=== PATIENT | female | born 2000 | race Caucasian/White ===

== ENCOUNTER → 2022-09-11 18:26 | Outpatient (CLI) | payer OTHER, SELFPAY ==
[2022-09-11 19:37] LABS: MANUAL DIFFERENTIAL MANUAL DIFFERENTIAL (MANUAL DIFF)
[2022-09-11 19:43] LABS: Basophils # 0.1 K/mm3 (0-0.2); Basophils % 0.8 % (0.1-2.0); Eosinophils # 0.1 K/mm3 (0.0-0.4); Eosinophils % 0.9 % (0.1-12.0); Hematocrit 41.3 % (37.0-47.0); Hemoglobin 13.1 g/dL (12.2-16.2); Lymphocytes # 2.5 K/mm3 (0.7-4.5); Lymphocytes % 20.3 % (10-50); Mean Corpuscular HGB Conc 31.7 g/dL (31.8-35.4); Mean Corpuscular Hemoglobin 26.5 pg (27.0-31.2); Mean Corpuscular Volume 83.6 fl (81-99); Mean Platelet Volume 8.5 fl (7.4-10.4); Monocytes # 0.7 K/mm3 (0.1-1.0); Monocytes % 5.8 % (1.7-9.3); Neutrophils # 8.9 K/mm3 (1.8-7.8); Neutrophils % 72.2 % (37.0-80.0); Platelet Count 484 K/mm3 (142-424); Red Blood Count 4.93 M/mm3 (4.20-5.40); Red Cell Distribution Width 13.9 % (11.5-17.5); White Blood Count 12.3 K/mm3 (4.8-10.8)
[2022-09-11 19:48] LABS: Chloride 102 mmol/L (98-107); Potassium 4.1 mmoL/L (3.5-5.1); Sodium 139 mmol/L (136-145)
[2022-09-11 19:50] LABS: Alanine Aminotransferase 30 U/L (12-78); Aspartate Amino Transferase 30 U/L (14-36); Blood Urea Nitrogen 11 mg/dl (7-17); Estimated Glomerular Filt Rate 105 ml/min (>60); GFR (African American) 127 ML/MIN (>60)
[2022-09-11 19:51] LABS: Albumin Level 4.6 g/dl (3.5-5.0); Albumin/Globulin Ratio 1.4 (1.1-1.8); Alkaline Phosphatase 93 U/L (38-126); Anion Gap 17.1 mEq/L (5-15); Bilirubin,Total 0.3 mg/dl (0.2-1.3); Calcium 10.1 mg/dl (8.4-10.2); Carbon Dioxide 24 mmol/L (22.0-30.0); Globulin 3.2 g/dL (1.3-3.2); Glucose 87 mg/dl (74-100); Total Protein,Serum 7.8 g/dl (6.3-8.2)
[2022-09-11 20:22] LABS: Thyroid Stimulating Hormone 1.83 uIU/mL (0.465-4.68)
[2022-09-11 22:18] LABS: Lymphocytes % 16 % (10-50); Monocytes % 2 % (2-9); Neutrophils % 82 % (42-76); Platelet Estimate Normal; RBC Morphology Normal; Total Cells Counted 100
== END ==
LOC: LAB.DROPOF 18:27
PROVIDERS: PCP Nurse Practitioner Family; Visit Provider Nurse Practitioner Family
DX: R53.83 Other fatigue (principal); Z68.43 Body mass index [BMI] 50.0-59.9, adult
CPT/HCPCS: 80053; 84443; 85007; 85014; 85018; 85048; 85049

== ENCOUNTER → 2022-12-15 23:00 | Outpatient (CLI) | payer OTHER, SELFPAY | PROVIDERS: PCP Family Medicine; Visit Provider Family Medicine | DX: R50.9 Fever, unspecified (principal) | CPT/HCPCS: C9803; U0003; U0005 ==

== ENCOUNTER → 2023-02-20 13:24 | Outpatient (CLI) | payer OTHER, SELFPAY ==
--- NOTE | 2023-02-20 14:18 | US_ITS ---
PROCEDURE INFORMATION: Exam: US Left Breast, Complete Exam date and time: 02/20/2023 2:23 PM Age: 22 years old Clinical indication: Breast pain; Left TECHNIQUE: Imaging protocol: Complete ultrasound of all four quadrants of the left breast and the retroareolar regions, including ultrasound of the axilla when performed. COMPARISON: No relevant prior studies available. FINDINGS: Breast: Sonographic images of the left breast including the retroareolar region, all 4 quadrants and the axilla do not demonstrate any solid or cystic masses. No architectural distortion or acoustical shadowing. No skin thickening or axillary adenopathy. IMPRESSION: No sonographic evidence of malignancy. ASSESSMENT: BI-RADS Category 1: Negative
== END ==
LOC: RAD 13:26
PROVIDERS: PCP Family Medicine; Visit Provider Nurse Practitioner
DX: N64.4 Mastodynia (principal)
CPT/HCPCS: 76641

== ENCOUNTER → 2023-07-22 12:00 | Outpatient (CLI) | payer OTHER, SELFPAY ==
[2023-07-22 18:11] LABS: HCG Qualitative, Serum Negative (Negative)
== END ==
LOC: LAB.DROPOF 07-23 00:18
PROVIDERS: PCP Family Medicine; Visit Provider Family Medicine
DX: N92.6 Irregular menstruation, unspecified (principal); Z32.00 Encounter for pregnancy test, result unknown
CPT/HCPCS: 84703

== ENCOUNTER 2024-06-07 17:56 | Outpatient (CLI) | payer OTHER, SELFPAY ==
[2024-06-07 16:57] LABS: Basophils # 0.1 K/mm3 (0-0.2); Basophils % 0.6 % (0.1-2.0); Eosinophils # 0.1 K/mm3 (0.0-0.4); Hematocrit 37.1 % (37.0-47.0); Hemoglobin 11.8 g/dL (12.2-16.2); Lymphocytes % 20.3 % (10-50); Mean Corpuscular HGB Conc 31.9 g/dL (31.8-35.4); Mean Corpuscular Hemoglobin 26.9 pg (27.0-31.2); Mean Corpuscular Volume 84.2 fl (81-99); Mean Platelet Volume 9.1 fl (7.4-10.4); Monocytes # 0.7 K/mm3 (0.1-1.0); Neutrophils # 7.1 K/mm3 (1.8-7.8); Neutrophils % 71.1 % (37.0-80.0); Platelet Count 354 K/mm3 (142-424); Red Blood Count 4.41 M/mm3 (4.20-5.40); Red Cell Distribution Width 14.9 % (11.5-17.5)
[2024-06-07 17:25] LABS: Alanine Aminotransferase 30 U/L (12-78); Albumin Level 3.9 g/dl (3.5-5.0); Albumin/Globulin Ratio 1.3 (1.1-1.8); Alkaline Phosphatase 64 U/L (38-126); Anion Gap 12.4 mEq/L (5-15); Aspartate Amino Transferase 24 U/L (14-36); Bilirubin,Total 0.3 mg/dl (0.2-1.3); Blood Urea Nitrogen 10 mg/dl (7-17); Calcium 9.8 mg/dl (8.4-10.2); Carbon Dioxide 22 mmol/L (22.0-30.0); Chloride 107 mmol/L (98-107); Chol/HDL Ratio 4.6 (1-3.5); Cholesterol 192 mg/dl (140-200); Estimated Glomerular Filt Rate 103 ml/min (>60); GFR (African American) 124 ML/MIN (>60); Glucose 99 mg/dl (74-100); HDL Cholesterol 42 mg/dl (40-60); Potassium 4.4 mmoL/L (3.5-5.1); Sodium 137 mmol/L (136-145); Total Protein,Serum 6.9 g/dl (6.3-8.2); Triglycerides 108 mg/dl (30-150); VLDL Cholesterol 22 mg/dL (0-40)
[2024-06-07 17:36] LABS: Direct LDL Cholesterol 125.19 mg/dL (100-129)
[2024-06-07 17:57] LABS: Thyroid Stimulating Hormone 0.02 uIU/mL (0.465-4.68)
[2024-06-07 18:17] LABS: Vitamin B12 307 pg/mL (239-931)
[2024-06-07 18:39] LABS: 25-OH Vitamin D, Total 25.1 ng/mL (30-100)
[2024-06-07 18:44] LABS: T4 (Thyroxine) 10.4 ug/dl (5.53-11.0); Triiodothryronine (T3) Uptake 29 % (23.5-40.5)
[2024-06-07 18:57] LABS: Thyroid Stimulating Hormone 0.03 uIU/mL (0.465-4.68)
[2024-06-07 19:44] LABS: Iron 55 ug/dL (37-170)
[2024-06-07 19:54] LABS: Total Iron Binding Capacity 357 ug/dL (265-497)
== END 2024-06-07 23:59 | disposition home or self-care (01) ==
LOC: LAB.DROPOF 17:56
PROVIDERS: PCP Nurse Practitioner Family; Visit Provider Nurse Practitioner Family
DX: R53.83 Other fatigue (principal)
CPT/HCPCS: 80050; 80053; 80061; 82306; 82607; 83036; 83540; 83550; 84436; 84443; 84479; 85025

== ENCOUNTER 2024-07-18 12:33 | Outpatient (CLI) | payer OTHER, SELFPAY | END 2024-07-18 23:59 | disposition home or self-care (01) | LOC: LAB.DROPOF 07-19 12:33 | PROVIDERS: PCP Family Medicine; Visit Provider Family Medicine | DX: R79.89 Other specified abnormal findings of blood chemistry (principal) | CPT/HCPCS: 84443 ==

== ENCOUNTER 2024-10-19 12:39 | Outpatient (CLI) | payer OTHER, SELFPAY ==
--- NOTE | 2024-10-19 12:39 | US_ITS ---
PROCEDURE: US TRANSVAGINAL CLINICAL INDICATION: abnormal menses COMPARISON: No exams were available for comparison FINDINGS: Transvaginal sonographic images of the pelvis were obtained. UTERUS: 8.3cm x 5.2cmx 3.9cm anteverted with a combined endometrial thickness of 10.9mm. The endometrium is trilaminar. LEFT OVARY: 3.8cmx3.4cmx2.0cm with a volume of 13.5ml. There is an irregular shaped follicle within the left ovary measuring 1.7 cm x 1.7 cm x 1.3 cm. Likely a corpus luteum. RIGHT OVARY: 2.6cmx 2.6cmx2.6cm with a volume of 9.6ml. There are several small peripheral follicles in the right ovary. Both ovaries are seen and appear normal. Doppler flow to both ovaries are seen. There is no fluid in the cul-de-sac. IMPRESSION: 1. Anteverted uterus normal in shape and size. The endometrium appears normal and trilaminar. 2. Both ovaries are seen and appear normal. There is a corpus luteum in the left ovary. 3. No fluid in the cul-de-sac. Dictated by: Carlos Slade MD 10/20/2024 02:49 Carlos Slade MD in OV 10/20/2024 02:49
== END 2024-10-19 23:59 | disposition home or self-care (01) ==
LOC: RAD 12:39
PROVIDERS: PCP Family Medicine; Visit Provider Obstetrics & Gynecology
DX: E28.2 Polycystic ovarian syndrome (principal); E66.01 Morbid (severe) obesity due to excess calories; Z68.44 Body mass index [BMI] 60.0-69.9, adult; Z31.9 Encounter for procreative management, unspecified
CPT/HCPCS: 76830

== ENCOUNTER 2024-10-25 07:50 | Outpatient (CLI) | payer OTHER, SELFPAY ==
[2024-10-25 08:58] LABS: Basophils # 0.1 K/mm3 (0-0.2); Eosinophils # 0.1 K/mm3 (0.0-0.4); Eosinophils % 1.4 % (0.1-12.0); Hemoglobin 12.6 g/dL (12.2-16.2); Lymphocytes % 24.8 % (10-50); Mean Corpuscular HGB Conc 32.3 g/dL (31.8-35.4); Mean Corpuscular Hemoglobin 26.1 pg (27.0-31.2); Mean Corpuscular Volume 80.9 fl (81-99); Mean Platelet Volume 8.1 fl (7.4-10.4); Monocytes # 0.5 K/mm3 (0.1-1.0); Monocytes % 6.3 % (1.7-9.3); Neutrophils # 5.5 K/mm3 (1.8-7.8); Neutrophils % 66.6 % (37.0-80.0); Platelet Count 359 K/mm3 (142-424); Red Blood Count 4.82 M/mm3 (4.20-5.40); Red Cell Distribution Width 14.3 % (11.5-17.5); White Blood Count 8.2 K/mm3 (4.8-10.8)
[2024-10-25 09:58] LABS: Chloride 107 mmol/L (98-107); Potassium 4.7 mmoL/L (3.5-5.1); Sodium 135 mmol/L (136-145)
[2024-10-25 10:01] LABS: Alanine Aminotransferase 35 U/L (12-78); Alkaline Phosphatase 61 U/L (38-126); Anion Gap 10.7 mEq/L (5-15); Aspartate Amino Transferase 30 U/L (14-36); Bilirubin,Total 0.5 mg/dl (0.2-1.3); Blood Urea Nitrogen 9 mg/dl (7-17); Calcium 9.6 mg/dl (8.4-10.2); Carbon Dioxide 22 mmol/L (22.0-30.0); Cholesterol 202 mg/dl (140-200); Estimated Glomerular Filt Rate 103 ml/min (>60); GFR (African American) 124 ML/MIN (>60); Glucose 93 mg/dl (74-100); Total Protein,Serum 7.1 g/dl (6.3-8.2); Triglycerides 148 mg/dl (30-150); VLDL Cholesterol 30 mg/dL (0-40)
[2024-10-25 10:02] LABS: Chol/HDL Ratio 5.5 (1-3.5); HDL Cholesterol 37 mg/dl (40-60)
[2024-10-25 10:13] LABS: Direct LDL Cholesterol 131.97 mg/dL (100-129)
[2024-10-25 10:41] LABS: Hemoglobin A1C 5.2 % (4.0-6.0)
[2024-10-25 10:48] LABS: Thyroid Stimulating Hormone 2.94 uIU/mL (0.465-4.68)
[2024-10-25 10:51] LABS: Ferritin 32.2 ng/ml (6.24-137)
[2024-10-25 15:11] LABS: Uric Acid 5.3 mg/dl (2.5-6.2)
[2024-10-25 16:21] LABS: Albumin Level 4.3 g/dl (3.5-5.0); Albumin/Globulin Ratio 1.5 (1.1-1.8); Globulin 2.8 g/dL (1.3-3.2)
[2024-10-26 06:22] LABS: Insulin Level Total 41.4 uIU/mL (2.6-24.9)
[2024-10-26 08:48] LABS: Estradiol 34.5 pg/mL (.); FSH 5.7 mIU/mL (.); Testosterone,Total 32 ng/dL (13-71)
[2024-10-28 05:09] LABS: Anti Mullerian Hormone (AMH) 3.15 ng/mL (.)
== END 2024-10-25 23:59 | disposition home or self-care (01) ==
LOC: LAB 07:51
PROVIDERS: PCP Family Medicine; Visit Provider Obstetrics & Gynecology
DX: E28.2 Polycystic ovarian syndrome (principal); E66.01 Morbid (severe) obesity due to excess calories; Z68.44 Body mass index [BMI] 60.0-69.9, adult; Z31.9 Encounter for procreative management, unspecified
CPT/HCPCS: 36415; 80050; 80053; 80061; 82397; 82670; 82728; 83001; 83036; 83525; 83735; 84403; 84443; 84550; 85025

== ENCOUNTER 2025-05-15 09:37 | Outpatient (CLI) | payer BC, SELFPAY ==
--- OUTSIDE RECORDS SUMMARY | 2025-05-15 09:47 | XMS_ITS | Clinical Summary ---
Author Organization [facility] Address [address] [place] [address] Care Team Providers Care Diploma Pharmacy Technician Name Role Phone Sabnia Pereira APRN Primary Care Provider [phone] Allergies Active Allergy Reactions Criticality Noted Date Comments Amoxicillin Unknown - Patient st ates they do not know rxn details Low 01/20/2023 As a child Penicillins Unknown - Patient st ates they do not know rxn details Low 03/17/2016 As a child Medications buPROPion SR (Wellbutrin SR) 150 MG 12 hr tabletIndications:M orbid obesity with body mass index (BMI) of 60.0 to 69.9 in adult (CMS/HCC) Take 1 tablet (150 mg) by mouth 2 (two) times a day. Do not crush, chew, or split. 60 tablet 2 4 Active naltrexone (ReVia) 50 MG tabletIndications:M orbid obesity with body mass index (BMI) of 60.0 to 69.9 in adult (CMS/HCC) Take 1 tablet (50 mg) by mouth 1 (one) time each day. 30 tablet 2 4 Active ondansetron ODT (Zofran-ODT) 4 MG disintegrating tabletIndications:N ausea Take 1 tablet (4 mg) by mouth every 8 (eight) hours if needed for nausea or vomiting. 20 tablet 4 Active Active Problems Problem Noted Date Diagnosed Date Morbid obesity with body mass index (BMI) of 40. 0 or higher 01/20/2023 Obesity 11/26/2017 Immunizations Immunization Administration Dates Next Due DTaP 05/07/2004, 1,2000,08/31/20 00,2000 Hep B, Adolescent or Pediatric 09/06/2001,1999,2000 Hib (PRP-OMP) 09/06/2001,2000,2000 IPV 09/06/2001,2000,2000 Influenza, high-dose, quadrivalent 11/17/2014 MMR 05/07/2004,05/13/2001 Meningococcal MCV4P 06/09/2011 Pneumococcal Conjugate PCV 7 11/30/2001, 05/13/2001,02/24/2001,11/18/19 01 Tdap 06/09/2011 Varicella 05/13/2001 Family History Medical History Relation Name Comments Diverticulitis Father Hypertension Father No Known Problems Father's Sister Brain Aneurysm Maternal Grandfather Diabetes Maternal Grandfather Non-Hodgkin's lymphoma Maternal Grandmother Rheum arthritis Maternal Grandmother Anemia Mother Hypertension Mother Menorrhagia Mother No Known Problems Mother's Sister Breast cancer Other No Known Problems Paternal Grandfather Colon cancer Paternal Grandmother Leukemia Paternal Great-Grandmother Relation Name Status Comments Father Alive Father's Sister Alive Maternal Grandfather Maternal Grandmother Alive Mother Alive Mother's Sister Other Paternal Great Aunt Paternal Grandfather Alive Paternal Grandmother Alive Paternal Great-Grandmother Social History Tobacco Use Types Packs/Day Years Used Date Smoking Tobacco: Never Smokeless Tobacco: Former Quit: 2019 Tobacco Cessation:Counseling Given: Not Answered Alcohol Use Standard Drinks/Week Comments Not Currently 0 (1 standard drink = 0.6 oz pur e alcohol) Very rare Humiliation, Afraid, Rape, and Kick questionnair e Answer Date Recorded Within the last year, have y ou been afraid of your partner or ex-partner? No 03/24/2024 Within the last year, have y ou been humiliated or emotionally abused in other ways by your partner or ex-partner? No Within the last year, have y ou been kicked, hit, slapped, or otherwise physically hurt by your partner or ex-partner? No 03/24/2024 Within the last year, have y ou been raped or forced to have any kind of sexual activity by your partner or ex-partner? No 03/24/2024 Social Connection and Isolation Panel Answer Date Recorded In a typical week, how many times do you talk on the phone with family, friends, or neighbors? More than three times a week 03/24/2024 How often do you get togethe r with friends or relatives? More than three times a week 03/24/2024 How often do you attend [facility] or [facility] services? More than 4 times per year 03/24/2024 Do you belong to any clubs o r organizations such as congregational groups, unions, fraternal or athletic groups, or school groups? Yes 03/24/2024 How often do you attend meet ings of the clubs or organizations you belong to? More than 4 times per year 03/24/2024 Are you , , di vorced, , never , or living with a partner? 03/24/2024 AUDIT-C Answer Date Recorded Q1: How often do you have a drink containing alcohol? Never 03/24/2024 Q2: How many drinks containi ng alcohol do you have on a typical day when you are drinking? Patient does not drink Q3: How often do you have si x or more drinks on one occasion? Never 03/24/2024 Overall Financial Resource Strain (CARDIA) Answe r Date Recorded How hard is it for you to pa y for the very basics like food, housing, medical care, and heating? Not hard at all 03/24/2024 PHQ-2 Answer Date Recorded Patient Health Questionnaire-2 Score 0 03/24/2024 [facility] - Occupational Stress Questionnaire Answer Date Recorded Do you feel stress - tense, restless, nervous, or anxious, or unable to sleep at night because your mind is troubled all the time - these days? Only a little 03/24/2024 Exercise Vital Sign Answer Date Recorde d On average, how many days pe r week do you engage in moderate to strenuous exercise (like a brisk walk)? 5 days 03/24/2024 On average, how many minutes do you engage in exercise at this level? 60 min 03/24/2024 Hunger Vital Sign Answer Date Recorded Within the past 12 months, y ou worried that your food would run out before you got the money to buy more. Never true 03/24/20 24 Within the past 12 months, t he food you bought just didn't last and you didn't have money to get more. Never true 03/24/2024 PRAPARE - Transportation Answer Date Re corded In the past 12 months, has l ack of transportation kept you from medical appointments or from getting medications? No 03/09 In the past 12 months, has l ack of transportation kept you from meetings, work, or from getting things needed for daily living? No 03/24/2024 Housing Stability Vital Sign Answer Prasad e Recorded In the last 12 months, was t here a time when you were not able to pay the mortgage or rent on time? No 03/24/2024 In the last 12 months, how many places have you lived? 1 03/24/2024 In the last 12 months, was t here a time when you did not have a steady place to sleep or slept in a skilled nursing (including now)? No 03/24/2024 Utilities Answer Date Recorded In the past 12 months has th e [employer], gas, oil, or water [employer] threatened to shut off services in your home? No 03/24/2024 PHQ-2A Answer Date Recorded Patient Health Questionnaire-2 Score 0 01/20/2023 Comments No Sex and Gender Information Value Date Recorded Sex Assigned at Not on file Legal Sex Female 6:22 PM EDT Gender Identity Not on file Sexual Orientation Not on file Last Filed Vital Signs Vital Sign Reading Time Taken Comments Blood Pressure 130/74 03/24/2024 12:07 PM EDT Pulse 80 03/24/2024 12:07 PM EDT Temperature 36.9 C (98.5 F) 01/20/2023 4:19 PM EDT Respiratory Rate 18 03/24/2024 12:07 PM EDT Oxygen Saturation 98% 03/24/2024 12:07 PM EDT Inhaled Oxygen Concentration - - Weight 201 kg (442 lb 10.9 oz) 03/24/2024 12:07 PM EDT Height 175.3 cm (5' 9 ) 03/24/2024 12:07 PM EDT Body Mass Index 65.37 03/24/2024 12:07 PM EDT Plan of Treatment Health Maintenance Due Date Last Done Comments [facility]-HIV Screening 2000 [facility]-Hepatitis C Screening 2000 [facility]-/Child/Adol SDOH Screenings 2000 [facility]-IPV Vaccines (4 of 4 - 4-dose series) 2004 09/06/2001, 2000, 2000 [facility]-Varicella Vaccines (2 of 2 - 2-dose childhood series) 06/04/2004 05/13/2001 HPV Vaccines (1 - 3-dose series) 2015 [facility]- SDOH Screenings 2018 [facility]-Adult SDOH Screenings 2018 [facility]-DTaP,Tdap,and Td Vaccines (7 - Td or Tdap) 06/09/2021 06/09/2011, 05/07/2004, 09/06/2001, Additional history exists FRA-LQAIM-24 Vaccine (1 - 2023- season) 2024 [facility]-Depression Screening 03/24/2025 03/24/2024 [facility]-Influenza Vaccine (#1) 2025 11/17/2014 [facility]-Pap Smear 01/20/2026 01/20/2023 [facility]-Zoster Vaccines (1 of 2) 2050 05/13/2001 [facility]-HIB Vaccines Completed 09/06/2001, , 2000 [facility]-Hepatitis B Vaccines Completed 001, 2000, 2000 [facility]-Pneumococcal Vaccine: Pediatrics (0 to 5 Years) and At-Risk Patients (6 to 49 Years) Aged Out 11/30/2001, 05/13/2001, 02/24/2001, Additional history exists No longer eligible based on patient's age to complete this topic [facility]-Obesity Intervention Completed 024, 01/29/2024, 01/20/2023 [facility]-Hepatitis A Vaccines Aged Out No longer eligible based on patient's age to complete this topic [facility]-Rotavirus Vaccines Aged Out No lo nger eligible based on patient's age to complete this topic Procedures Procedure Name Priority Date/Time Associated Diagnosis Comments PAP TEST - CYTOLOGY Routine 01/20/2023 4 :39 PM EDT Pap smear for cervical cancer screening from Last 3 Months or Most Recently Relevant to Health Maintenance Results * Pap Test (01/20/2023 4:39 PM EDT) Case Report Cytology Case: [id number] Authorizing Provider: Jennifer English APRN, Collected: 01/20/2023 1639 CNM Ordering Location: Obstetrics & Gynecology Received: 01/21/2023 0927 First Screen: Macie Gallagher Specimen: ThinPrep Pap Test, Liquid-Based Cervical/Vaginal, CERVICAL/VAGINAL 01/23/2023 4:12 PM EDT [facility] Interpretation NEGATIVE FOR INTRAEPITHELIAL LESION OR MALIGNANCY 01/23/2023 4:12 PM EDT [facility] at 1612 EDT Specimen Adequacy Satisfactory for evaluation; endocervical/gramajo sformation zone component absent/insufficie nt. Slide imaged by the ThinPrep Imaging system and selected 22 zambrano reviewed then full manual screening. 01/23/2023 4:12 PM EDT [facility] Cervical cytology is a screening test primarily for squamous cancers and precursors and has associated false negative and positive results. New technologies such as liquid based sampling may decrease but will not eliminate all false negative results. Regular screening and follow-up of unexplained clinical signs and symptoms are recommended to minimize false negative results. Please see the ASCCP website (www.asccp.org)fo r followup recommendations. If HPV testing was requested, correlation with the results is suggested (please call Microbiology at [phone] for results). 01/23/2023 4:12 PM EDT [facility] Menstrual Status Cyclic 01/24/20 4:12 PM EDT [facility] Contraceptive History Not Applicable 01/23/2023 4:12 PM EDT [facility] Screening Type Routine Screen 2022 4:12 PM EDT [facility] High Risk? No 01/23/2023 4:12 PM EDT [facility] HPV Testing Requested? Request HPV testing if ASCUS or LSIL. 01/23/2023 4:12 PM EDT [facility] Previous Cancer History No 01/23/2023 4:12 PM EDT [facility] Clinical Information Z12.4 - Pap smear for cervical cancer screening [ICD-10-CM] 01/23/2023 4:12 PM EDT [facility] Last Menstrual Period 12/29/2022 01/23/2023 4:12 PM EDT [facility] Swab Vaginal and cervical cytologic material / Unknown Non-blood Collection / Unknown 01/20/2023 4:39 PM EDT 01/21/2023 9:27 AM EDT Jennifer English APRN, [facility]TOLOGY ORDERA BLES Final Result [facility] [address] [place] [address] from Last 3 Months or Most Recently Relevant to Health Maintenance Insurance Care Teams Diploma Pharmacy Technician Relationship Specialty Start Date End Date Sabina Pereira APRN [address] [place] [address] [phone] PCP - General Family Medicine 01/30/24
== END 2025-05-15 23:59 | disposition home or self-care (01) ==
PROVIDERS: PCP Family Medicine; Visit Provider Obstetrics & Gynecology
DX: Z34.90 Encounter for supervision of normal pregnancy, unspecified, unspecified trimester (principal)
CPT/HCPCS: 36415; 84144; 84702

== ENCOUNTER 2025-05-17 11:15 | Outpatient (CLI) | payer BC, SELFPAY ==
--- OUTSIDE RECORDS SUMMARY | 2024-07-29 07:30 | XMS_ITS ---
Author Organization [facility] Address [address] [place] [address] Care Team Providers Care Terrestrial Ecologist Name Role Phone Ibrahima Zheng Unavailable [phone] Amy Key Unavailable [phone] REASON FOR VISIT 3 month med F/U Medications Medication SIG (Take, Route, Frequency, Duration) Notes Start Date End Date Status Topamax PRN-migraines Active metFORMIN HCl ER 500 MG Tablet Extended Release 24 Hour 1 tablet Orally twice a day, 1 tablet after breakfast and dinner; Duration: 90 days Active Social History Social History Additional Details Category Social Info Options Details Migrated Social History Tobacco Use: willy es Encounters Encounter Location Date Provider Diagnosis [facility] [address] [place] [address] 07/29/2024 Amy Key Plan Of Treatment No Information Progress Notes * Raisa CLARKDOB:1999 (25 yo F)Acc No.[id number]:07/29/2024 Progress Note Patient: Raisa Connelly Provider: KATHRYN WELLINGTON :2000 A ge:24 Y S ex:Female Date:07/29/2024 Address:[address] [place], [place] [address] Subjective: * Chief Complaints: * 3 month med F/U * Medical History: Asthma Migraine headaches Morbid obesity * Tool/Die Maker History: M enstrual History: A ge of Onset 1 2 L MP: 0 04/17/2024 S exual Activity/Contraception: E [place] sexually active Y es B irth control (Historical) n one. L ast Pap Smear/HPV Date (Historical) N ever had a pap smear. * OB History: P regnancy History (GPA) Total Pregnancies 0 * Surgical History: gallbladder knee sx * Family History: denies. * Social History: M igrated Social History: T obacco Use: denies. * Medications: T akingmetFORMIN HCl ER 500 MG Tablet Extended Release 24 Hour 1 tablet Orally twice a day, 1 tablet after breakfast and dinner Topamax , Notes to Pharmacist: PRN-migrainesTaking metFORMIN HCl ER 500 MG Tablet Extended Release 24 Hour 1 tablet Orally twice a day, 1 tablet after breakfast and dinner Taking Topamax , Notes to Pharmacist: PRN-migraines * Electronic signature of Kael Key APRN on 05/17/2025 at 11:17 AM EDT Sign off status: Pending Visit Status: N /S (No-Show) * Provider: KATHRYN WELLINGTON Date: 0 07/29/2024 Generated for Jennifer skelton/Robert/Sergioitting on: 0 05/17/2025 11:17 AM EDT
--- OUTSIDE RECORDS SUMMARY | 2025-05-17 11:17 | XMS_ITS | Patient Health Record ---
Author Organization [facility] Address [address] [place] [address] Care Team Providers Care Box Finisher Name Role Phone Ibrahima Zheng Unavailable [phone] Amy Key Unavailable [phone] Allergies Allergen (clinical drug ingredient) Drug/Non Drug Allergy documented on EMR Reaction Allergy Type Onset Date Status Penicillin Anaphylaxis Drug Allergy Acti ve Reason For Referral No Information Medications Medication SIG (Take, Route, Frequency, Duration) Notes Start Date End Date Status Topamax PRN-migraines Active metFORMIN HCl ER 500 MG Tablet Extended Release 24 Hour 1 tablet Orally twice a day, 1 tablet after breakfast and dinner; Duration: 90 days Active Social History Social History Additional Details Category Social Info Options Details Migrated Social History Tobacco Use: willy es Problems Problem Type SNOMED Code ICD Code Onset Dates Problem Status W/U Status Risk Notes Problem Morbid obesity (disorder) (930699452) Morbid (severe) obesity due to excess calories (E66.01) Active confirmed Problem 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) Active confirmed Problem Female infertility (6623161) Infertility, female (N97.9) Active confirmed Problem Missed period (44792104) Missed period (N92.6) Active confirmed Problem Body mass index 30+ - obesity (finding) (049668026) Body mass index [BMI] 60.0-69.9, adult (Z68.44) Active confirmed Encounters Encounter Location Date Provider Diagnosis [facility] [address] [place] [address] 06/21/2024 Amy Key Plan Of Treatment No Information Insurance Providers Payer Name Payer Address Payer Phone Subscriber Number Group Number Insured Name Patient Relationship to Insured Coverage Start Date Coverage End Date [facility] [address] [place], [place] [id number] Raisa Jiménez Self - patient is the insured Medical (General) History Medical History History ICD Code asthma migraine headaches morbid obesity Surgical History Surgery Date(Month/Year) gallbladder knee sx
--- OUTSIDE RECORDS SUMMARY | 2025-05-17 11:17 | XMS_ITS | Data Portability ---
Author Organization [employer] [facility] Address [address] [place] [address] Assessment No assessment recorded. Plan of Treatment Reminders Order Date Submit Date Provider Last Modified By Organization Details Last Modified Time Details Appointments None recorded. Lab vitamin D, 25-hydroxy, total, serum 2023 024 [facility], [address], [place], [address], 4 05:23:20 dhea-sulfat e, serum 2023 024 [facility], [address], [place], [address], 4 05:23:19 prolactin, serum 2023 024 [facility], [address], [place], [address], 4 05:23:19 HbA1c (hemoglobin A1c), blood 2023 024 [facility], [address], [place], [address], 4 05:23:21 lh + FSH, serum 2023 024 [facility], [address], [place], [address], 4 05:23:20 lipid panel, serum 2023 024 [place] [employer] [facility], [address], [place], [address], 4 05:23:17 CBC w/ auto diff 2023 024 [place] [facility], [address], [place], [address], 4 05:23:18 CMP, serum or plasma 2023 024 [place] [facility], [address], [place], [address], 4 05:23:18 TSH, serum or plasma 2023 024 [place] [facility], [address], [place], [address], 4 05:23:20 Referral None recorded. Procedures None recorded. Surgeries None recorded. Imaging XR, ankle, 3 or more view [address], [address], 5 17:26:56 XR, foot, 3 or more view [address] [facility], [address] [place] [address], [address], 5 17:26:05 XR, wrist, 3 or more view [address], [address], 3 17:02:27 Medication Orders prednisone 20 mg tablet 2022 023 [email or web address] [facility], [address] [place], [address], 09:12:23 Patient TargetsNo targets recorded. Patient InstructionsNo instructions recorded. Reason for Referral None Reported. Results Created Date Observation Date Name Description Value Unit Range Abnormal Flag Note LastModifiedBy Organization Detail LastModifiedTime 11/19/19 24 11/20/2023 LIPID PANEL , STAND EMERALD cholesterol, total 187 mg/dL <200 normal Not Available [facility] [place] [facility] [address] [facility], [place], [address], 11/20/2023 07:34:52 11/19/1911/20/2023 LIPID PANEL , STAND EMERALD HDL cholesterol 42 mg/dL > or = 50 low Not Available [facility] [place] [facility] [address] [facility], [place], [address], 11/20/2023 07:34:52 11/19/19 24 11/20/2023 LIPID PANEL , STAND EMERALD triglyceride s 214 mg/dL <150 high If a non-f astin g speci men was colle cted, consi pete repea t trigl yceri de testi ng on a fasti ng speci men if clini jorge a indic ated. Connor crespo et al. J. of Clin. Lipid ol. 2015; 9:129 -169. Not Available [facility] [place] [facility] [address], [place], [address], 11/20/2023 07:34:52 11/19/1911/20/2023 LIPID PANEL , STAND EMERALD LDL-choleste rol 112 mg/dL _(karon c) high Refer ence range : <100 Henrry able range <100 mg/dL for prima ry preve ntion ; <70 mg/dL for patie nts with CHD or diabe tic patie nts with > or = 2 CHD risk facto rs. LDL-C is now calcu lated using the [facility] n-Hop kins calcu dominic n, which is a valid ated novel metho d provi renetta walker r accur acy than the Fried justice equat ion in the estim ation of LDL-C . Laurie n SS et al. DIVYA. 2013; 310(1 9): 2061- 2068 (http ://ed ucati on.Qu Corina godwinD-ÉG Thermoset. com/f aq/FA Q164) Not Available [facility] [place] [facility] [address] [facility], [place], [address], 11/20/2023 07:34:52 11/19/19 24 11/20/2023 LIPID PANEL , STAND EMERALD chol/HDLC ratio 4.5 (calc ) <5.0 normal Not Available [facility] [place] [facility] [address] [facility], [place], [address], 11/20/2023 07:34:52 11/19/19 24 11/20/2023 LIPID PANEL , STAND EMERALD non HDL cholesterol 145 mg/dL _(karon c) <130 high For patie nts with diabe manuela plus 1 major ASCVD risk facto r, treat ing to a non-H DL-C goal of <100 mg/dL (LDL- C of <70 mg/dL ) is wayne smith n. Not Available [facility] [place] [facility] [address] [facility], [place], [address], 11/20/2023 07:34:52 11/19/19 24 11/20/2023 COMPR EHENS NOBLE METAB OLIC PANEL glucose 102 mg/dL 65-139 normal Non-f astin g refer ence inter lizzie Not Available [facility] [place] [facility] [address], [place], [address], 11/20/2023 07:34:53 11/19/19 24 11/20/2023 COMPR EHENS NOBLE METAB OLIC PANEL urea nitrogen (BUN) 12 mg/dL 7-25 normal Not Available [facility] [place] [facility] [address], [place], [address], 11/20/2023 07:34:53 11/19/19 24 11/20/2023 COMPR EHENS NOBLE METAB OLIC PANEL creatinine 0.72 mg/dL 0.50-0 .96 normal Not Available [facility] [place] [facility] [address] [facility] [place], [address], 11/20/2023 07:34:53 11/19/19 24 11/20/2023 COMPR EHENS NOBLE METAB OLIC PANEL eGFR 120 mL/mi n/1.7 3m2 > or = 60 normal Not Available [facility] [address] [place], [address], 11/20/2023 07:34:53 11/19/19 24 11/20/2023 COMPR EHENS NOBLE METAB OLIC PANEL BUN/creatini ne ratio SEE NOTE: (calc ) 6-22 Not Repor mallorie: BUN and Creat inine are withi n refer ence range . Not Available [facility] [address] [place], [address], 11/20/2023 07:34:53 11/19/19 24 11/20/2023 COMPR EHENS NOBLE METAB OLIC PANEL sodium 136 mmol/ L 135-14 6 normal Not Available [facility] [address] [place], [address], 11/20/2023 07:34:53 11/19/19 24 11/20/2023 COMPR EHENS NOBLE METAB OLIC PANEL potassium 4.6 mmol/ L 3.5-5. 3 normal Not Available [facility] [address] [place], [address], 11/20/2023 07:34:53 11/19/19 24 11/20/2023 COMPR EHENS NOBLE METAB OLIC PANEL chloride 102 mmol/ L 98-110 normal Not Available [facility] [address] [place], [address], 11/20/2023 07:34:53 11/19/19 24 11/20/2023 COMPR EHENS NOBLE METAB OLIC PANEL carbon dioxide 26 mmol/ L 20-32 normal Not Available [facility] [place] [facility] [address] [facility] [place], [address], 11/20/2023 07:34:53 11/19/19 24 11/20/2023 COMPR EHENS NOBLE METAB OLIC PANEL calcium 9.5 mg/dL 8.6-10 .2 normal Not Available [facility] [address] [place], [address], 11/20/2023 07:34:53 11/19/19 24 11/20/2023 COMPR EHENS NOBLE METAB OLIC PANEL protein, total 7.0 g/dL 6.1-8. 1 normal Not Available [facility] [place] [facility] [address] [place], [address], 11/20/2023 07:34:53 11/19/19 24 11/20/2023 COMPR EHENS NOBLE METAB OLIC PANEL albumin 4.1 g/dL 3.6-5. 1 normal Not Available [facility] [address] [place], [address], 11/20/2023 07:34:53 11/19/19 24 11/20/2023 COMPR EHENS NOBLE METAB OLIC PANEL globulin 2.9 g/dL_ (calc ) 1.9-3. 7 normal Not Available [facility] [address] [place], [address], 11/20/2023 07:34:53 11/19/19 24 11/20/2023 COMPR EHENS NOBLE METAB OLIC PANEL albumin/glob ulin ratio 1.4 (calc ) 1.0-2. 5 normal Not Available [facility] [address] [place], [address], 11/20/2023 07:34:53 11/19/19 24 11/20/2023 COMPR EHENS NOBLE METAB OLIC PANEL bilirubin, total 0.3 mg/dL 0.2-1. 2 normal Not Available [facility] [address] [place], [address], 11/20/2023 07:34:53 11/19/19 24 11/20/2023 COMPR EHENS NOBLE METAB OLIC PANEL alkaline phosphatase 60 U/L 31-125 normal Not Available [facility] [address] [place], [address], 11/20/2023 07:34:53 11/19/19 24 11/20/2023 COMPR EHENS NOBLE METAB OLIC PANEL AST 16 U/L 10-30 normal Not Available [facility] [address] [place], [address], 11/20/2023 07:34:53 11/19/19 24 11/20/2023 COMPR EHENS NOBLE METAB OLIC PANEL ALT 21 U/L 6-29 normal Not Available [facility] [address] [place], [address], 11/20/2023 07:34:53 11/19/19 24 11/20/2023 CBC (INCL UDES DIFF/ PLT) white blood cell count 9.7 thous and/u L 3.8-10 .8 normal Not Available [facility] [address] [place], [address], 11/20/2023 05:23:18 11/19/19 24 11/20/2023 CBC (INCL UDES DIFF/ PLT) red blood cell count 4.55 lela on/uL 3.80-5 .10 normal Not Available [facility] [address] [place], [address], 11/20/2023 05:23:18 11/19/19 24 11/20/2023 CBC (INCL UDES DIFF/ PLT) hemoglobin 11.7 g/dL 11.7-1 5.5 normal Not Available [facility] [place] [facility] [address] [place], [address], 11/20/2023 05:23:18 11/19/19 24 11/20/2023 CBC (INCL UDES DIFF/ PLT) hematocrit 36.0 % 35.0-4 5.0 normal Not Available [facility] [place] [facility] [address], [place], [address], 11/20/2023 05:23:18 11/19/19 24 11/20/2023 CBC (INCL UDES DIFF/ PLT) MCV 79.1 fL 80.0-1 00.0 low Not Available [facility] [place] [facility] [address] [place], [address], 11/20/2023 05:23:18 11/19/19 24 11/20/2023 CBC (INCL UDES DIFF/ PLT) MCH 25.7 pg 27.0-3 3.0 low Not Available [facility] [place] [facility] [address], [place], [address], 11/20/2023 05:23:18 11/19/19 24 11/20/2023 CBC (INCL UDES DIFF/ PLT) MCHC 32.5 g/dL 32.0-3 6.0 normal Not Available [facility] [place] [facility] [address], [place], [address], 11/20/2023 05:23:18 11/19/19 24 11/20/2023 CBC (INCL UDES DIFF/ PLT) RDW 13.0 % 11.0-1 5.0 normal Not Available [facility] [address] [facility], [place], [address], 11/20/2023 05:23:18 11/19/19 24 11/20/2023 CBC (INCL UDES DIFF/ PLT) platelet count 369 thous and/u L 140-40 0 normal Not Available [facility] [place] [facility] [address] [facility] [place], [address], 11/20/2023 05:23:18 11/19/19 24 11/20/2023 CBC (INCL UDES DIFF/ PLT) MPV 11.3 fL 7.5-12 .5 normal Not Available [facility] [place] [facility] [address], [place], [address], 11/20/2023 05:23:18 11/19/19 24 11/20/2023 CBC (INCL UDES DIFF/ PLT) absolute neutrophils 6354 cells /uL 1500-7 800 normal Not Available [facility] [place] [facility] [address] [facility], [place], [address], 11/20/2023 05:23:18 11/19/19 24 11/20/2023 CBC (INCL UDES DIFF/ PLT) absolute lymphocytes 2221 cells /uL 850-39 00 normal Not Available [facility] [place] [facility] [address] [facility] [place], [address], 11/20/2023 05:23:18 11/19/19 24 11/20/2023 CBC (INCL UDES DIFF/ PLT) absolute monocytes 941 cells /uL 200-95 0 normal Not Available [facility] [place] [facility] [address] [facility], [place], [address], 11/20/2023 05:23:18 11/19/19 24 11/20/2023 CBC (INCL UDES DIFF/ PLT) absolute eosinophils 116 cells /uL 15-500 normal Not Available [facility] [place] [facility] [address] [facility], [place], [address], 11/20/2023 05:23:18 11/19/19 24 11/20/2023 CBC (INCL UDES DIFF/ PLT) absolute basophils 68 cells /uL 0-200 normal Not Available [facility] [place] [facility] [address] [facility] [place], [address], 11/20/2023 05:23:18 11/19/19 24 11/20/2023 CBC (INCL UDES DIFF/ PLT) neutrophils 65.5 % normal Not Available [facility] [place] [facility] [address] [place], [address], 11/20/2023 05:23:18 11/19/19 24 11/20/2023 CBC (INCL UDES DIFF/ PLT) lymphocytes 22.9 % normal Not Available [facility] [place] [facility] [address] [place], [address], 11/20/2023 05:23:18 11/19/19 24 11/20/2023 CBC (INCL UDES DIFF/ PLT) monocytes 9.7 % normal Not Available [facility] [place] [facility] [address] [place], [address], 11/20/2023 05:23:18 11/19/19 24 11/20/2023 CBC (INCL UDES DIFF/ PLT) eosinophils 1.2 % normal Not Available [facility] [place] [facility] [address] [place], [address], 11/20/2023 05:23:18 11/19/19 24 11/20/2023 CBC (INCL UDES DIFF/ PLT) basophils 0.7 % normal Not Available [facility] [place] [facility] [address] [facility] [place], [address], 11/20/2023 05:23:18 11/19/19 24 11/20/2023 DHEA SULFA TE DHEA sulfate 249 mcg/d L 14-349 normal Not Available [facility] [place] [facility] [address] [facility] [place], [address], 11/20/2023 08:06:37 01/11/20 24 11/20/2023 PROLA CTIN prolactin 19.6 NG/mL normal Refer ence Range Femal es Non-p regna nt 3.0-3 0.0 Pregn ant 10.0- 209.0 Postm enopa usal 2.0-2 0.0 Not Available [facility] [place] [facility] [address] [place], [address], 11/20/2023 08:06:38 11/19/19 24 11/20/2023 TSH W/REF VERONICA TO FT4 TSH w/reflex to FT4 1.80 mIU/L normal Refer ence Range > or = 20 Years 0.40- 4.50 Pregn roman Range s First trime ster 0.26- 2.66 Secon d trime ster 0.55- 2.73 Third trime ster 0.43- 2.91 Not Available [facility] [place] [facility] [address] [place] [address], [address], 11/20/2023 08:06:39 11/19/19 24 11/20/2023 FSH AND LH FSH 7.3 mIU/m L normal Refer ence Range Folli cular Phase 2.5-1 0.2 Mid-c ycle Peak 3.1-1 7.7 Lutea l Phase 1.5- 9.1 Postm enopa usal 23.0- 116.3 Not Available [facility] [place], [address], 11/20/2023 08:06:40 11/19/19 24 11/20/2023 FSH AND LH LH 3.9 mIU/m L normal Refer ence Range Folli cular Phase 1.9-1 2.5 Mid-C ycle Peak 8.7-7 6.3 Lutea l Phase 0.5-1 6.9 Postm enopa usal 10.0- 54.7 Not Available [facility] [place] [facility] [address] [place], [address], 11/20/2023 08:06:40 11/19/19 24 11/20/2023 VITAM IN D,25- OH,TO DIAMOND,I A vitamin D,25-oh,tota l,ia 20 NG/mL 30-100 low Vitam in D Statu s 25-OH Vitam in D: Defic iency : <20 ng/mL Insuf ficie ncy: 20 - 29 ng/mL Optim al: > or = 30 ng/mL For 25-OH Vitam in D testi ng on patie nts on D2-ron pplem entat ion and patie nts for whom quant itati on of D2 and D3 fract ions is requi red, the [facility] Assur eD(TM ) 25-OH VIT D, (D2,D 3), LC/MS /MS is recom sean d: order code 16084 (quoc ents >2yrs ). See Note 1 Note 1 For addit ional infor karlie flores refer to http: //lizzette Blue stDia gnost ics.c om/fa q/FAQ 199 (This link is being provi ded for infor tony hugo/ educcesilia johnson purpo ses only. ) Not Available [facility] [place] [facility] [address] [facility], [place], [address], 11/20/2023 08:06:41 11/19/19 24 11/20/2023 HEMOG LOBIN A1C hemoglobin A1C 5.3 %_of_ total _HGB <5.7 normal For the purpo se of sudeep tucker for the prese nce of diabe manuela: <5.7% Consi stent with the absen ce of diabe manuela 5.7-6 .4% Consi stent with incre ased risk for diabe manuela (pred iabet es) > or =6.5% Consi stent with diabe manuela This assay resul t is consi stent with a decre ased risk of diabe manuela. Curre ntly, no conse nsus exist s presley jackson use of hemog lobin A1c for diagn osis of diabe manuela in child addy. Accor renetta to Josh can Diabe manuela Assoc iatio n (ADA) guide lines , hemog lobin A1c <7.0% repre sents optim al contr ol in non-p regna nt diabe tic patie nts. Diffe rent metri cs may apply to speci fic patie nt popul ation s. Stand ards of Medic al Care in Diabe manuela(A DA). HbA1c perfo rmed on Abbot t platf orm. Not Available [facility] [place] [facility] [address], [place], [address], 11/20/2023 07:49:36 06/26/20 23 XR, wrist , 3 or more view No observ ation record ed. [email or web address] [address], [address], 08/06/2023 14:27:27 12/30/19 25 XR, foot, 3 or more view No observ ation record ed. [email or web address] [address], [address], 01/04/2025 10:06:32 12/30/19 25 XR, ankle , 3 or more view No observ ation record ed. [address], [address], 01/02/2025 15:22:50 Result Notes None recorded. Problems Name Problem SNOMED Code Status Onset Date Resolution Date Notes Provider Name and Address Organization Details Recorded Time Vitamin D deficien cy 47610618 Active 2021 Problem Code: E55.9; Problem Code Type: ICD-10; Not Available [facility] 22:47:46 Vitamin deficien cy 42433448 Active 2021 Problem Code: E56.9; Problem Code Type: ICD-10; Not Available [facility] 2 22:47:46 Obesity 193521756 Active 2021 Not Available [facility] 2 22:47:46 Disorder of upper respirat ory system 634213498 Completed 201902/14/2021 Problem Code: J06.9; Problem Code Type: ICD-10; Not Available [facility] 2 22:47:46 Allergic rhinitis 83923288 Active 2020 Problem Code: J30.9; Problem Code Type: ICD-10; Not Available [facility] 22:47:46 Furuncle 792583311 Active 2020 Problem Code: L02.92; Problem Code Type: ICD-10; Not Available [facility] 22:47:46 Disorder of skin and/or subcutan eous tissue 09186796 Active 2021 Problem Code: L98.9; Problem Code Type: ICD-10; Not Available [facility] 2 22:47:47 Knee pain Active 2019 Not Available [facility] 22:47:47 Right side sciatica 48960563608 9101 Completed 201902/14/2021 Problem Code: M54.31; Problem Code Type: ICD-10; Not Available [facility] 2 22:47:47 Low back pain 873913295 Active 2019 Problem Code: M54.5; Problem Code Type: ICD-10; Not Available [facility] 2 22:47:47 Vaginola bial hernia Active 2019 Problem Code: N89.8; Problem Code Type: ICD-10; Not Available [facility] 2 22:47:47 Abdomina l pain 31883033 Completed 202005/23/2021 Problem Code: R10.9; Problem Code Type: ICD-10; Not Available [facility] 2 22:47:47 Stool color abnormal 707492269 Active 2020 Problem Code: R19.5; Problem Code Type: ICD-10; Not Available [facility] 2 22:47:47 Eruption 161773612 Active 2020 Problem Code: R21; Problem Code Type: ICD-10; Not Available [facility] 2 22:47:47 Chronic fatigue syndrome 18788503 Active 2021 Problem Code: R53.82; Problem Code Type: ICD-10; Not Available [facility] 22:47:48 Tear of medial meniscus of knee 603453605 Active 2019 Problem Code: S83.242A ; Problem Code Type: ICD-10; Not Available [facility] 22:47:48 Pre-surg david evaluati on Active 2019 Not Available [facility] 22:47:48 Body mass index 30+ - obesity 468537826 Active 2021 Problem Code: Z68.43; Problem Code Type: ICD-10; Not Available [facility] 22:47:48 Body mass index 30+ - obesity 785998260 Completed 202005/23/2021 Problem Code: Z68.43; Problem Code Type: ICD-10; Not Available [facility] 22:47:49 Body mass index 30+ - obesity 248668265 Completed 201909/14/2020 Problem Code: Z68.43; Problem Code Type: ICD-10; Not Available [facility] 22:47:49 Problem Notes None recorded. Procedures Surgical History Date Name Laterality Status Provider Name and Address Organization Details Recorded Time 06/18/20 cholecystectomy completed Not Available [facility] 07/15/2022 22:56:14 06/18/20 20 tonsillectomy and adenoidectomy completed Not Available [facility] 07/15/2022 22:56:14 06/18/20 20 tympanostomy completed Not Available [facility] 07/15/2022 22:56:14 Imaging Results None recorded. Procedure Notes None recorded. Medical Equipment None Reported. Allergies Allergen ID Allergen Name Allergen Category Reaction Reaction Severity Criticality Documentation Date Start Date Code Code System Note Provider Name and Address Organization Details Recorded Time 94715 Product containin g penicilli n (product) medicatio n Not available Not available Not available 07/15/2022 17753 8001 SNOMED Aller gyCod e: ''; Aller gyNam e: 'Peni cilli ns'; Aller gyCon ceptT ype: ''; Not Available [facility] 22:58:46 43494 amoxicill in medicatio n Not available Not available Not available 06/26/2023 723 RxNorm Radha Chandni arnett [facility] [employer], [facility] 14:40:22 Medications Name Sig Start Date Stop Date Status Note LastModified by Organization Details LastModified Time cyclobenzap rine 10 mg tablet 06/26 completed Not Available Not Available Not Available prednisone 10 mg tablet take 1 tablet (10 mg) by oral route 3 times per day x5 days 06/26 completed Not Available Not Available Not Available clindamycin HCl 300 mg capsule 06/26 completed Not Available Not Available Not Available cetirizine 10 mg tablet take 1 tablet (10 mg) by oral route once daily 12/19 completed Not Available Not Available Not Available azithromyci n 250 mg tablet take 2 tablets (500 mg) by oral route once daily for 1 day then 1 tablet (250 mg) by oral route once daily for 4 days 06/26 completed Not Available Not Available Not Available ibuprofen 800 mg tablet 11/19 completed Not Available Not Available Not Available prednisone 20 mg tablet take 1 tablet (20 mg) by oral route 3 times per day x3 days 11/19 completed Not Available Not Available Not Available topiramate 25 mg tablet 11/19 completed Not Available Not Available Not Available sulfamethox azole 800 mg-trimetho prim 160 mg tablet take 1 tablet by oral route every 12 hours for 10 days 06/26 completed Not Available Not Available Not Available tramadol 50 mg tablet Take 1 tablet 3 times a day by oral route as needed for 3 days. active Not Available Not Available No t Available pantoprazol e 40 mg tablet,deisy yed release take 1 tablet (40 mg) by oral route once daily 12/19 completed Not Available Not Available Not Available mupirocin 2 % topical ointment apply a small amount to the affected area by topical route 3 times per day 06/26 completed Not Available Not Available Not Available Vitamin D2 1,250 mcg (50,000 unit) capsule 1 capsule PO q week x3 months active Not Available Not Available No t Available ketoconazol e 2 % topical cream apply to the affected area(s) by topical route 2 times per day 06/13 completed Not Available Not Available Not Available bromphenira mine-pseudo ephedrine-D M 2 mg-30 mg-10 mg/5 mL oral syrup 11/19 completed Not Available Not Available Not Available fluticasone propionate 50 mcg/actuati on nasal spray,suspe nsion 11/19 completed Not Available Not Available Not Available phentermine 37.5 mg capsule take 1 capsule (37.5 mg) by oral route once daily before breakfast 11/19 completed Not Available Not Available Not Available naproxen 500 mg tablet take 1 tablet (500 mg) by oral route 2 times per day with food PRN pain 02/14 completed Not Available Not Available Not Available levocetiriz ine 5 mg tablet 11/19 completed Not Available Not Available Not Available Vitals Date Recorded Body height Body mass index (BMI) Body weight Heart rate Oxygen saturation Oxygen saturation in Arterial blood by Pulse oximetry Systolic And Diastolic Provider Name and Address Organization Details Last Updated DateTime 4 175.26 cm 64.7 kg/m2 308219. 56 g 110 /min 98 % 98 % 114/81 mm[Hg] [employer] 4 09:12:11 Date Recorded Body height Body mass index (BMI) Body weight Heart rate Oxygen saturation Oxygen saturation in Arterial blood by Pulse oximetry Systolic And Diastolic Provider Name and Address Organization Details Last Updated DateTime 5 175.26 cm 63.4 kg/m2 768402. 13 g 85 /min 97 % 97 % 106/62 mm[Hg] [employer] 5 14:28:33 Date Recorded Body weight Body mass index (BMI) Body height Heart rate Oxygen saturation Oxygen saturation in Arterial blood by Pulse oximetry Systolic And Diastolic Provider Name and Address Organization Details Last Updated DateTime 3 412479. 24 g 61.1 kg/m2 175.26 cm 65 /min 98 % 98 % 128/84 mm[Hg] Twitch 3 14:43:51 Social History Question Answer Notes LastModified by Organizat ion Details LastModified Time Tobacco Smoking Status Never Smoker SocialHis Kaity ion: 'Tobacco/ Alcohol/S upplement s'; His Adriana nse: 'Never Smoker'; Not Available [facility] 07/15/2022 23:01:49 Is Your Home Air Conditioned? Yes Information not available 06/26/2023 If You Are , What Was Your Level Of Alcohol Consumption Prior To ? None Information not available 06/26/2023 Are You Blind Or Do You Have Difficulty Seeing? No Information not available 06/26/2023 What Is Your Level Of Caffeine Consumption? Occasional Information not available 06/26/2023 Are You A Caregiver? No Information not available 06/26/2023 In The 14 Days Before Symptom Onset, Have You Had Close Contact With A Laboratory-confir med COVID-19 While That Case Was Ill? No Information not available 06/26/2023 In The 14 Days Before Symptom Onset, Have You Had Close Contact With A Person Who Is Under Investigation For COVID-19 While That Person Was Ill? No Information not available 06/26/2023 Have You Been To An Area Known To Be High Risk For COVID-19? No Information not available 06/26/2023 Are You Deaf Or Do You Have Serious Difficulty Hearing? No Information not available 06/26/2023 What Type Of Diet Are You Following? SPECIFIC Information not available 06/26/2023 Have There Been Any Changes To Your Family Or Social Situation? No Information no t available 06/26/2023 What Was The Date Of Your Most Recent Tobacco Screening? 12/30/2024 Information not available 12/30/2024 What Is Your Relationship Status? Information not available 06/26/2023 Do You Have Smoke And Carbon Monoxide Detectors In Your Home? Yes Information not available 06/26/2023 Have You Recently Traveled Abroad? No Information not available 06/26/2023 Do You Have Difficulty Walking Or Climbing Stairs? No Information not available 06/26/2023 Sex: Female Functional Status Question Answer Note LastModified by Organizat ion Details LastModified Time Do you use any illicit or recreational drugs? No Information not available 06/26/2023 What is your level of alcohol consumption? None Information not available 06/26/2023 Do you have transportation difficulties? No Information not available 06/26/2023 Are you able to walk? YESWOREST Information not available 06/26/2023 Do you have difficulty doing errands alone? No Information not available 06/26/2023 Are you able to care for yourself? Yes Information not available 06/26/2023 Do you have difficulty dressing or bathing? No Information not available 06/26/2023 Mental Status Question Answer Note LastModified by Organization D etails LastModified Time Do you have difficulty concentrating, remembering or making decisions? No Information no t available 06/26/2023 Family History Relationship Description Onset Age of this Age Resolved Age Notes LastModified by Organization Details LastModified Time Unspecified Relation Family history of Hypertension Relati ve: ''; [email or web address] Not available 07/15/2022 22:58:38 Notes:*Procedure Description : Documented family medical history in mother*Relative: Mother *Procedure Description: Documented family medical history in father*Relative: Father *Procedure Description: Family medical history unknown*Relative: Unspecified Relation *Problem: Relative: ''; Medical History Condition Response Asthma Y Gynecological History Statement/Question Response Date of Last Pap Smear Most Recent Mammogram Obstetrics History GPAL:G 0 P 0 0 0 0 Past Encounters Encounter ID Performer Location Encounter Start Date Encounter Closed Date Diagnosis/Indication Diagnosis SNOMED-CT Code Diagnosis ICD10 Code Diagnosis Note [id number] Vanita Messina[address] [address] 06/26/2023 14:26:05 06/26/2023 16:03:40 Pain of right wrist 7152338021 53622 M25.531 Edema of wrist 356046205 R60.0 Body mass index 40+ - severely obese 648259579 Z68.44 [id number] Vanita Stone, [address] [address] 11/19/2023 08:56:21 11/19/2023 10:21:34 Polycystic ovary syndrome 806489077 E28.2 Fatigue 47063426 R53.83 Hyperlipidemia 07655140 E78.5 Vitamin D deficiency 347 77378 E55.9 Obesity 066338249 E66.9 Body mass index 40+ - severely obese 348251495 Z68.44 [id number] Vanita Messina [address] [address] 12/30/2024 14:14:07 12/30/2024 14:53:54 Pain in right foot 3936760508 01756 M79.671 Pain of ri ght ankle joint 6513155893 5892761 M25.571 Body mass index 40+ - severely obese 210813823 Z68.44 Health Concerns Section Related Observation LastModified by Organization Detai ls LastModified Time None Recorded Concern Status LastModified by Organization Details LastModified Time None Recorded Advance Directives Directive None Recorded Payers Insurance Date Sequence Insurance Name Policy Number Policy Rubi Covered Member ID Rubi Member ID Guarantor Name 12/30/2024 1 [id number] [id number] 01 Raisa Gonzalez [id number] Raisa Gonzalez 11/19/2023 1 [employer] (POS) Raisa Gonzalez [id number] Raisa Gonzalez 12/30/2024 1 [facility] [id number] Raisa Gonzalez [id number] Raisa Gonzalez 06/26/2023 1 *SELF PAY* Senthil Gonzalez Notes Date Note Type Note Provider Name and Address Organization Details Recorded Time 06/26/2023 text/html pt here today wi th c/i right wrist pain for around 2 weeks. pt states that around 2 weeks ago she was pumping gas and the tube got tangled and she was twisting her wrist in a funny way and since then it has been hurting. pt states that it feels like its burning and by the end of the day it is tingling . 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 on exam, pt has edema, mostly just below thumb, pt can move all fingers but states the thumb is sluggish . i will order steroids and xray. pt to RICE. Vanita Messina, DORIAN [address] [facility], [place], [address], [employer], [employer] 06/26/2023 15:21:26 11/19/2023 text/html pt here today wanting to talk about her weight. pt states that she has been over weight all of her life and it has been hard to loose weight. pt states that recently she was prescribed adipex and topamax and that helped her lose some weight but after around 4 months she just stopped losing weight and her cravings came back. pt states that she craves sweets all the time. pt states that she gets up in the mornings and thats that first thing she wants. pt states by the afternoon she is so fatigued that she can barely finish her work at her job. pt states that she has also noticed recently that her hair has been falling out and it used to be thicker. pt states that her and her have been for over 2 years and they havent been really trying to have children but havent been preventing it, but have never gotten . pt states that for the past several months they have been trying and not gotten . pt states they have been to see a fertility doc and tracks ovulation to see if that will help. pt states that fertility doc had only checked progesterone level when she went. i am going to check some labs today and go from there. pt is not really interested in starting adipex again. states its hard to stick to a diet. Vanita DORIAN Messina [address] [facility], [place], [address], [employer] 11/19/2023 13:30:33 12/30/2024 text/html pt here today wi th c/o right foot pain x3 weeks. pt states that she was running after her dog and she rolled her ankle and fell hard . pt states that it hurts when she bears wt and going up stairs. pt states that it is swollen. states that her was in the hospital and she was walking on it for a few days but after 3-4 days she was RICE the foot. today the right ankle is swollen and right lateral foot is tender to touch. i will order xray for further evaluation. continue to RICE. Vanita Messina APRN [address] [facility], [place], [address], [facility] [employer] 12/30/2024 14:56:31 OBGyn Episode No OBEpisode recorded.
--- OUTSIDE RECORDS SUMMARY | 2025-05-17 11:17 | XMS_ITS | Clinical Summary ---
Author Organization [facility] Address [address] [place] [address] Care Team Providers Care Slip Caster Name Role Phone Sabina Pereira APRN Primary Care Provider [phone] Allergies Active Allergy Reactions Criticality Noted Date [...] week 03/24/2024 How often do you attend [facility] or jain services? More than 4 times per year 03/24/2024 Do you belong to any clubs o r organizations such as religious groups, unions, fraternal or athletic groups, or [...] Recorded Patient Health Questionnaire-2 Score 0 03/24/2024 [facility] - Occupational Stress [...] place to sleep or slept in a intermediate (including now)? No 03/24/2024 Utilities Answer Date Recorded In the past 12 months has th e [employer], gas, oil, or water [employer] threatened to shut off services in your [...] 06/09/2021 06/09/2011, 05/07/2004, 09/06/2001, Additional history exists [id number] Vaccine (1 - 2023- season) 2024 [facility]-Depression [...] 4:39 PM EDT) Case Report Cytology Case: [id number] Authorizing Provider: Jennifer English APRN, Collected: 01/20/2023 1639 CNM Ordering Location: Obstetrics & Gynecology Received: 01/21/2023 0927 First Screen: Macie Gallagher Specimen: ThinPrep Pap Test, Liquid-Based Cervical/Vaginal, CERVICAL/VAGINAL 01/23/2023 4:12 PM EDT [facility] Interpretation NEGATIVE FOR INTRAEPITHELIAL LESION OR MALIGNANCY 01/23/2023 4:12 PM EDT [facility] at 1612 EDT Specimen Adequacy Satisfactory for evaluation; endocervical/gramajo sformation zone component absent/insufficie nt. Slide imaged by the ThinPrep Imaging system and selected 22 zambrano reviewed then full manual screening. 01/23/2023 4:12 PM EDT [facility] Cervical cytology is a [...] results is suggested (please call Microbiology at [phone] for results). 01/23/2023 4:12 PM EDT [facility] Menstrual Status Cyclic 01/24/20 4:12 PM EDT [facility] Contraceptive History Not Applicable 01/23/2023 4:12 PM EDT [facility] Screening Type Routine Screen 2022 4:12 PM EDT [facility] High Risk? No 01/23/2023 4:12 PM EDT [facility] HPV Testing Requested? Request HPV testing if ASCUS or LSIL. 01/23/2023 4:12 PM EDT [facility] Previous Cancer History No 01/23/2023 4:12 PM EDT [facility] Clinical Information Z12.4 - Pap smear for cervical cancer screening [ICD-10-CM] 01/23/2023 4:12 PM EDT [facility] Last Menstrual Period 12/29/2022 01/23/2023 4:12 PM EDT [facility] Swab Vaginal and cervical cytologic material / Unknown Non-blood Collection / Unknown 01/20/2023 4:39 PM EDT 01/21/2023 9:27 AM EDT Jennifer English APRN, [facility] CYTOLOGY ORDERA BLES Final Result [facility] [address] [place] [address] from Last 3 Months or Most Recently Relevant to Health [place] [address] Care Teams Slip Caster Relationship Specialty Start Date End Date Sabina Pereira APRN [address] [place] [phone] PCP - General Family Medicine 01/30/24
== END 2025-05-17 23:59 | disposition home or self-care (01) ==
LOC: LAB 11:15
PROVIDERS: PCP Family Medicine; Visit Provider Obstetrics & Gynecology
DX: Z32.01 Encounter for pregnancy test, result positive (principal)
CPT/HCPCS: 36415; 84702

== ENCOUNTER 2025-05-25 13:36 | Outpatient (CLI) | payer BC, SELFPAY ==
--- OUTSIDE RECORDS SUMMARY | 2024-07-29 07:30 | XMS_ITS ---
Author Organization [facility] Address [address] [place] [address] Care Team Providers Care Planning Engineer Name Role Phone Ibrahima Zheng Unavailable [phone] Amy Key Unavailable [phone] REASON FOR VISIT 3 month med F/U [...] es Encounters Encounter Location Date Provider Diagnosis [facility] [address] [place] [address] 07/29/2024 Amy Key Plan Of Treatment No Information Progress Notes * Raisa CLARKDOB:1999 (25 yo F)Acc No.[id number]:07/29/2024 Progress Note Patient: Raisa Connelly Provider: KATHRYN WELLINGTON :2000 A ge:24 Y S ex:Female Date:07/29/2024 Address:[address] [place], [place] [id number] Subjective: * Chief Complaints: * 3 month med F/U * Medical History: Asthma Migraine headaches Morbid obesity * Baby Doctor History: M enstrual History: A ge of [...] Electronic signature of Kael Key APRN on 05/25/2025 at 01:40 PM EDT Sign off status: Pending Visit Status: N /S (No-Show) * Provider: KATHRYN WELLINGTON Date: 0 07/29/2024 Generated for Jennifer skelton/Robert/Sergioitting on: 0 05/25/2025 01:40 PM EDT
--- OUTSIDE RECORDS SUMMARY | 2025-05-25 13:39 | XMS_ITS | Clinical Summary ---
Author Organization [facility] Address [address] [place] [address] Care Team Providers Care Roving Hauler Name Role Phone Sabina Pereira APRN Primary Care Provider [phone] Allergies Active Allergy Reactions Criticality Noted Date [...] week 03/24/2024 How often do you attend [facility] or hindu services? More than 4 times per year 03/24/2024 Do you belong to any clubs o r organizations such as yazidi groups, unions, fraternal or athletic groups, or [...] Recorded Patient Health Questionnaire-2 Score 0 03/24/2024 [facility] - Occupational Stress [...] place to sleep or slept in a prison (including now)? No 03/24/2024 Utilities Answer Date Recorded In the past 12 months has th e [employer], gas, oil, or water [employer] threatened to shut off services in your [...] [facility]-HIV Screening 2000 [facility]-Hepatitis C Screening 2000 [facility]-Infant/Child/Adol SDOH Screenings 2000 [facility]-IPV Vaccines (4 of 4 - 4-dose series) 2004 09/06/2001, 2000, 2000 [facility]-Varicella Vaccines (2 of 2 - 2-dose childhood series) 06/04/2004 05/13/2001 HPV Vaccines (1 - 3-dose series) 2015 [facility]- SDOH Screenings 2018 [facility]-Adult SDOH Screenings 2018 [facility]-DTaP,Tdap,and Td Vaccines (7 - Td or Tdap) 06/09/2021 06/09/2011, 05/07/2004, 09/06/2001, Additional history exists [id number] Vaccine (1 - 2023- season) 2024 [facility]-Depression [...] 4:39 PM EDT) Case Report Cytology Case: [id number] Authorizing Provider: Jennifer English APRN, Collected: 01/20/2023 1639 CNM Ordering Location: Obstetrics & Gynecology Received: 01/21/2023 0927 First Screen: Macie Gallagher Specimen: ThinPrep Pap Test, Liquid-Based Cervical/Vaginal, CERVICAL/VAGINAL 01/23/2023 4:12 PM EDT [facility] Interpretation NEGATIVE FOR INTRAEPITHELIAL LESION OR MALIGNANCY 01/23/2023 4:12 PM EDT [facility] at 1612 EDT Specimen Adequacy Satisfactory for evaluation; endocervical/gramajo sformation zone component absent/insufficie nt. Slide imaged by the ThinPrep Imaging system and selected 22 zambrano reviewed then full manual screening. 01/23/2023 4:12 PM EDT [facility] Cervical cytology is a screening test [...] results is suggested (please call Microbiology at [phone] for results). 01/23/2023 4:12 PM EDT [facility] Menstrual Status Cyclic 01/24/20 4:12 PM EDT [facility] Contraceptive History Not Applicable 01/23/2023 4:12 PM EDT [facility] Screening Type Routine Screen 2022 4:12 PM EDT [facility] High Risk? No 01/23/2023 4:12 PM EDT [facility] HPV Testing Requested? Request HPV testing if ASCUS or LSIL. 01/23/2023 4:12 PM EDT [facility] Previous Cancer History No 01/23/2023 4:12 PM EDT [facility] Clinical Information Z12.4 - Pap smear for cervical cancer screening [ICD-10-CM] 01/23/2023 4:12 PM EDT [facility] Last Menstrual Period 12/29/2022 01/23/2023 4:12 PM EDT [facility] Swab Vaginal and cervical cytologic material / Unknown Non-blood Collection / Unknown 01/20/2023 4:39 PM EDT 01/21/2023 9:27 AM EDT Jennifer English APRN, [facility] CYTOLOGY ORDERA BLES Final Result [facility] [address] [place] [address] from Last 3 Months or Most Recently Relevant to Health Maintenance Insurance Care Teams Roving Hauler Relationship Specialty Start Date End Date Sabina Pereira APRN [address] [place] [phone] PCP - General Family Medicine 01/30/24
--- OUTSIDE RECORDS SUMMARY | 2025-05-25 13:40 | XMS_ITS | Patient Health Record ---
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) Active confirmed Problem Female infertility (0632799) Infertility, female (N97.9) Active confirmed Problem Missed period (82396602) Missed period (N92.6) Active confirmed Problem Body mass index 30+ - obesity (finding) (721355592) Body mass index [BMI] 60.0-69.9, adult (Z68.44) Active confirmed Encounters Encounter Location Date Provider Diagnosis [facility] [address] [place] [address] 06/21/2024 Amy Key Plan Of Treatment No Information Insurance Providers Payer Name Payer Address Payer Phone Subscriber Number Group Number Insured Name Patient Relationship to Insured Coverage Start Date Coverage End Date [facility] [address] [place], [place] [id number] Raisa Jiménez Self - patient is the insured Medical (General) History Medical History History ICD Code asthma migraine headaches morbid obesity Surgical History Surgery Date(Month/Year) gallbladder knee sx
--- OUTSIDE RECORDS SUMMARY | 2025-05-25 13:41 | XMS_ITS | Data Portability ---
Author Organization [employer] [facility] - [facility] Address [address] [place] [address] Assessment No assessment recorded. Plan of Treatment Reminders Order Date Submit Date Provider Last Modified By Organization Details Last Modified Time Details Appointments None recorded. Lab vitamin D, 25-hydroxy, total, serum 2023 024 [employer] [facility], [address], [place], [address], 4 05:23:20 dhea-sulfat e, serum 2023 024 [employer] [facility], [address], [place], [address], 4 05:23:19 prolactin, serum 2023 024 [employer] [facility], [address], [place], [address], 4 05:23:19 HbA1c (hemoglobin A1c), blood 2023 024 [employer] [facility], [address], [place], [address], 4 05:23:21 lh + FSH, serum 2023 024 [employer] [facility], [address], [place], [address], 4 05:23:20 lipid panel, serum 2023 024 MARCY [facility], [address], [place], [address], 4 05:23:17 CBC w/ auto diff 2023 024 MARCY [facility], [address], [place], [address], 4 05:23:18 CMP, serum or plasma 2023 024 MARCY [facility], [address], [place], [address], 4 05:23:18 TSH, serum or plasma 2023 024 MARCY [facility], [address], [place], [address], 4 05:23:20 Referral None recorded. Procedures None recorded. Surgeries None recorded. Imaging XR, ankle, 3 or more view [address], [address], 5 17:26:56 XR, foot, 3 or more view 2024 025 [facility], [address] [place] [address], [address], 5 17:26:05 XR, wrist, 3 or more view [address], [address], 3 17:02:27 Medication Orders prednisone 20 mg tablet 2022 023 [email or web address] 1 [facility], [address] [place], [address], 09:12:23 Patient TargetsNo targets recorded. Patient InstructionsNo instructions recorded. Reason for Referral None Reported. Results Created Date Observation Date Name Description Value Unit Range Abnormal Flag Note LastModifiedBy Organization Detail LastModifiedTime 11/19/19 24 11/20/2023 LIPID PANEL , STAND EMERALD cholesterol, total 187 mg/dL <200 normal Not Available [facility] [address] [facility], [place], [address], 11/20/2023 07:34:52 11/19/1911/20/2023 LIPID PANEL , STAND EMERALD HDL cholesterol 42 mg/dL > or = 50 low Not Available [facility] [address] [facility], [place], [address], 11/20/2023 07:34:52 11/19/19 24 11/20/2023 LIPID PANEL , STAND EMERALD triglyceride s 214 mg/dL <150 high If a non-f astin g speci men was colle cted, consi pete repea t trigl yceri de testi ng on a fasti ng speci men if clini jorge a indic ated. Connor crespo et al. J. of Clin. Lipid ol. 2015; 9:129 -169. Not Available [facility] [address], [place], [address], 11/20/2023 07:34:52 11/19/1911/20/2023 LIPID PANEL , STAND EMERALD LDL-choleste rol 112 mg/dL _(karon c) high Refer ence range : <100 Henrry able range <100 mg/dL for prima ry preve ntion ; <70 mg/dL for patie nts with CHD or diabe tic patie nts with > or = 2 CHD risk facto rs. LDL-C is now calcu lated using the [facility] n-Hop kins calcu dominic n, which is a valid ated novel metho d provi renetta walker r accur acy than the Fried justice equat ion in the estim ation of LDL-C . Laurie n SS et al. DIVYA. 2013; 310(1 9): 2061- 2068 (http ://ed ucati on.Qu Corina godwinEquity Endeavor. com/f aq/FA Q164) Not Available [facility] [address] [facility], [place], [address], 11/20/2023 07:34:52 11/19/19 24 11/20/2023 LIPID PANEL , STAND EMERALD chol/HDLC ratio 4.5 (calc ) <5.0 normal Not Available [facility] [address] [facility], [place], [address], 11/20/2023 07:34:52 11/19/19 24 11/20/2023 LIPID PANEL , STAND EMERALD non HDL cholesterol 145 mg/dL _(karon c) <130 high For patie nts with diabe manuela plus 1 major ASCVD risk facto r, treat ing to a non-H DL-C goal of <100 mg/dL (LDL- C of <70 mg/dL ) is wayne smith n. Not Available [facility] [address] [facility], [place], [address], 11/20/2023 07:34:52 11/19/19 24 11/20/2023 COMPR EHENS NOBLE METAB OLIC PANEL glucose 102 mg/dL 65-139 normal Non-f astin g refer ence inter lizzie Not Available [facility] [address] [facility] [address], [place], [address], 11/20/2023 07:34:53 11/19/19 24 11/20/2023 COMPR EHENS NOBLE METAB OLIC PANEL urea nitrogen (BUN) 12 mg/dL 7-25 normal Not Available [facility] [address] [facility], [place], [address], 11/20/2023 07:34:53 11/19/19 24 11/20/2023 COMPR EHENS NOBLE METAB OLIC PANEL creatinine 0.72 mg/dL 0.50-0 .96 normal Not Available [facility] [address] [facility] [place], [address], 11/20/2023 07:34:53 11/19/19 24 11/20/2023 COMPR EHENS NOBLE METAB OLIC PANEL eGFR 120 mL/mi n/1.7 3m2 > or = 60 normal Not Available [facility] [address] [place], [address], 11/20/2023 07:34:53 11/19/19 24 11/20/2023 COMPR EHENS NOBLE METAB OLIC PANEL BUN/creatini ne ratio SEE NOTE: (calc ) 6-22 Not Repor mallorie: BUN and Creat inine are withi n refer ence range . Not Available [facility] [address] [place], [address], 11/20/2023 07:34:53 11/19/19 24 11/20/2023 COMPR EHENS NOBLE METAB OLIC PANEL sodium 136 mmol/ L 135-14 6 normal Not Available [facility] [address] [place], [address], 11/20/2023 07:34:53 11/19/19 24 11/20/2023 COMPR EHENS NOBLE METAB OLIC PANEL potassium 4.6 mmol/ L 3.5-5. 3 normal Not Available [facility] [address] [place], [address], 11/20/2023 07:34:53 11/19/19 24 11/20/2023 COMPR EHENS NOBLE METAB OLIC PANEL chloride 102 mmol/ L 98-110 normal Not Available [facility] [address] [place], [address], 11/20/2023 07:34:53 11/19/19 24 11/20/2023 COMPR EHENS NOBLE METAB OLIC PANEL carbon dioxide 26 mmol/ L 20-32 normal Not Available [facility] [address] [facility] [place], [address], 11/20/2023 07:34:53 11/19/19 24 11/20/2023 COMPR EHENS NOBLE METAB OLIC PANEL calcium 9.5 mg/dL 8.6-10 .2 normal Not Available [facility] [address] [place], [address], 11/20/2023 07:34:53 11/19/19 24 11/20/2023 COMPR EHENS NOBLE METAB OLIC PANEL protein, total 7.0 g/dL 6.1-8. 1 normal Not Available [facility] [address] [place], [address], 11/20/2023 07:34:53 11/19/19 24 11/20/2023 COMPR EHENS NOBLE METAB OLIC PANEL albumin 4.1 g/dL 3.6-5. 1 normal Not Available [facility] [address] [place], [address], 11/20/2023 07:34:53 11/19/19 24 11/20/2023 COMPR EHENS NOBLE METAB OLIC PANEL globulin 2.9 g/dL_ (calc ) 1.9-3. 7 normal Not Available [facility] [address] [place], [address], 11/20/2023 07:34:53 11/19/19 24 11/20/2023 COMPR EHENS NOBLE METAB OLIC PANEL albumin/glob ulin ratio 1.4 (calc ) 1.0-2. 5 normal Not Available [facility] [address] [place], [address], 11/20/2023 07:34:53 11/19/19 24 11/20/2023 COMPR EHENS NOBLE METAB OLIC PANEL bilirubin, total 0.3 mg/dL 0.2-1. 2 normal Not Available [facility] [address] [place], [address], 11/20/2023 07:34:53 11/19/19 24 11/20/2023 COMPR EHENS NOBLE METAB OLIC PANEL alkaline phosphatase 60 U/L 31-125 normal Not Available [facility] [address] [place], [address], 11/20/2023 07:34:53 11/19/19 24 11/20/2023 COMPR EHENS NOBLE METAB OLIC PANEL AST 16 U/L 10-30 normal Not Available [facility] [address] [place], [address], 11/20/2023 07:34:53 11/19/19 24 11/20/2023 COMPR EHENS NOBLE METAB OLIC PANEL ALT 21 U/L 6-29 normal Not Available [facility] [address] [place], [address], 11/20/2023 07:34:53 11/19/19 24 11/20/2023 CBC (INCL UDES DIFF/ PLT) white blood cell count 9.7 thous and/u L 3.8-10 .8 normal Not Available [facility] [address] [place], [address], 11/20/2023 05:23:18 11/19/19 24 11/20/2023 CBC (INCL UDES DIFF/ PLT) red blood cell count 4.55 lela on/uL 3.80-5 .10 normal Not Available [facility] [address] [place], [address], 11/20/2023 05:23:18 11/19/19 24 11/20/2023 CBC (INCL UDES DIFF/ PLT) hemoglobin 11.7 g/dL 11.7-1 5.5 normal Not Available [facility] [address] [facility] [place], [address], 11/20/2023 05:23:18 11/19/19 24 11/20/2023 CBC (INCL UDES DIFF/ PLT) hematocrit 36.0 % 35.0-4 5.0 normal Not Available [facility] [address], [place], [address], 11/20/2023 05:23:18 11/19/19 24 11/20/2023 CBC (INCL UDES DIFF/ PLT) MCV 79.1 fL 80.0-1 00.0 low Not Available [facility] [address] [facility], [address], 11/20/2023 05:23:18 11/19/19 24 11/20/2023 CBC (INCL UDES DIFF/ PLT) MCH 25.7 pg 27.0-3 3.0 low Not Available [facility] [address], [place], [address], 11/20/2023 05:23:18 11/19/19 24 11/20/2023 CBC (INCL UDES DIFF/ PLT) MCHC 32.5 g/dL 32.0-3 6.0 normal Not Available [facility] [address], [place], [address], 11/20/2023 05:23:18 11/19/19 24 11/20/2023 CBC (INCL UDES DIFF/ PLT) RDW 13.0 % 11.0-1 5.0 normal Not Available [facility] [address] [facility], [place], [address], 11/20/2023 05:23:18 11/19/19 24 11/20/2023 CBC (INCL UDES DIFF/ PLT) platelet count 369 thous and/u L 140-40 0 normal Not Available [facility] [address] [facility] [place], [address], 11/20/2023 05:23:18 11/19/19 24 11/20/2023 CBC (INCL UDES DIFF/ PLT) MPV 11.3 fL 7.5-12 .5 normal Not Available [facility] [address] [facility] [address], [place], [address], 11/20/2023 05:23:18 11/19/19 24 11/20/2023 CBC (INCL UDES DIFF/ PLT) absolute neutrophils 6354 cells /uL 1500-7 800 normal Not Available [facility] [address] [facility], [place], [address], 11/20/2023 05:23:18 11/19/19 24 11/20/2023 CBC (INCL UDES DIFF/ PLT) absolute lymphocytes 2221 cells /uL 850-39 00 normal Not Available [facility] [address] [facility] [place], [address], 11/20/2023 05:23:18 11/19/19 24 11/20/2023 CBC (INCL UDES DIFF/ PLT) absolute monocytes 941 cells /uL 200-95 0 normal Not Available [facility] [address] [facility], [place], [address], 11/20/2023 05:23:18 11/19/19 24 11/20/2023 CBC (INCL UDES DIFF/ PLT) absolute eosinophils 116 cells /uL 15-500 normal Not Available [facility] [address] [facility], [place], [address], 11/20/2023 05:23:18 11/19/19 24 11/20/2023 CBC (INCL UDES DIFF/ PLT) absolute basophils 68 cells /uL 0-200 normal Not Available [facility] [address] [facility] [place], [address], 11/20/2023 05:23:18 11/19/19 24 11/20/2023 CBC (INCL UDES DIFF/ PLT) neutrophils 65.5 % normal Not Available [facility] [address] [place], [address], 11/20/2023 05:23:18 11/19/19 24 11/20/2023 CBC (INCL UDES DIFF/ PLT) lymphocytes 22.9 % normal Not Available [facility] [address] [place], [address], 11/20/2023 05:23:18 11/19/19 24 11/20/2023 CBC (INCL UDES DIFF/ PLT) monocytes 9.7 % normal Not Available [facility] [address] [place], [address], 11/20/2023 05:23:18 11/19/19 24 11/20/2023 CBC (INCL UDES DIFF/ PLT) eosinophils 1.2 % normal Not Available [facility] [address] [place], [address], 11/20/2023 05:23:18 11/19/19 24 11/20/2023 CBC (INCL UDES DIFF/ PLT) basophils 0.7 % normal Not Available [facility] [address] [facility] [place], [address], 11/20/2023 05:23:18 11/19/19 24 11/20/2023 DHEA SULFA TE DHEA sulfate 249 mcg/d L 14-349 normal Not Available [facility] [address] [facility] [place], [address], 11/20/2023 08:06:37 01/11/20 24 11/20/2023 PROLA CTIN prolactin 19.6 NG/mL normal Refer ence Range Femal es Non-p regna nt 3.0-3 0.0 Pregn ant 10.0- 209.0 Postm enopa usal 2.0-2 0.0 Not Available [facility] [address] [place], [address], 11/20/2023 08:06:38 11/19/19 24 11/20/2023 TSH W/REF VERONICA TO FT4 TSH w/reflex to FT4 1.80 mIU/L normal Refer ence Range > or = 20 Years 0.40- 4.50 Pregn roman Range s First trime ster 0.26- 2.66 Secon d trime ster 0.55- 2.73 Third trime ster 0.43- 2.91 Not Available [facility] [address] [place] [address], [address], 11/20/2023 08:06:39 11/19/19 24 11/20/2023 FSH AND LH FSH 7.3 mIU/m L normal Refer ence Range Folli cular Phase 2.5-1 0.2 Mid-c ycle Peak 3.1-1 7.7 Lutea l Phase 1.5- 9.1 Postm enopa usal 23.0- 116.3 Not Available [facility] [place], [address], 11/20/2023 08:06:40 11/19/19 24 11/20/2023 FSH AND LH LH 3.9 mIU/m L normal Refer ence Range Folli cular Phase 1.9-1 2.5 Mid-C ycle Peak 8.7-7 6.3 Lutea l Phase 0.5-1 6.9 Postm enopa usal 10.0- 54.7 Not Available [facility] [address] [place], [address], 11/20/2023 08:06:40 11/19/19 24 11/20/2023 VITAM IN [...] /MS is recom sean d: order code 89024 (quoc ents >2yrs ). See Note 1 Note 1 For addit ional infor karlie flores refer to http: //lizzette Blue stDia gnost ics.c om/fa q/FAQ 199 (This link is being provi ded for infor tony hugo/ educcesilia johnson purpo ses only. ) Not Available [facility] [address] [facility], [place], [address], 11/20/2023 08:06:41 11/19/19 24 11/20/2023 HEMOG LOBIN [...] platf orm. Not Available [facility] [address], [place], [address], 11/20/2023 07:49:36 06/26/20 23 XR, wrist , 3 or more view No observ ation record ed. [email or web address] [address], [address], 08/06/2023 14:27:27 12/30/19 25 XR, foot, 3 or more view No observ ation record ed. [email or web address] [address], [address], 01/04/2025 10:06:32 12/30/19 25 XR, ankle , 3 or more view No observ ation record ed. [address], [address], 01/02/2025 15:22:50 Result Notes None recorded. Problems Name Problem SNOMED Code Status Onset Date Resolution Date Notes Provider Name and Address Organization Details Recorded Time Knee pain Active 2019 Not Available [facility] 2 22:47:47 Body mass index 30+ - obesity 564118248 Completed 201909/14/2020 Problem Code: Z68.43; Problem Code Type: ICD-10; Not Available [facility] 2 22:47:49 Tear of medial meniscus of knee 470402987 Active 2019 Problem Code: S83.242A ; Problem Code Type: ICD-10; Not Available [facility] 2 22:47:48 Pre-surg david evaluati on Active 2019 Not Available [facility] 2 22:47:48 Disorder of upper respirat ory system 171375605 Completed 201902/14/2021 Problem Code: J06.9; Problem Code Type: ICD-10; Not Available [facility] 22:47:46 Vaginola bial hernia Active 2019 Problem Code: N89.8; Problem Code Type: ICD-10; Not Available [facility] 22:47:47 Right side sciatica 72949528593 9101 Completed 201902/14/2021 Problem Code: M54.31; Problem Code Type: ICD-10; Not Available [facility] 22:47:47 Low back pain 724249309 Active 2019 Problem Code: M54.5; Problem Code Type: ICD-10; Not Available [facility] 22:47:47 Allergic rhinitis 66173751 Active 2020 Problem Code: J30.9; Problem Code Type: ICD-10; Not Available [facility] 2 22:47:46 Eruption 519493081 Active 2020 Problem Code: R21; Problem Code Type: ICD-10; Not Available [facility] 22:47:47 Body mass index 30+ - obesity 701546402 Completed 202005/23/2021 Problem Code: Z68.43; Problem Code Type: ICD-10; Not Available [facility] 22:47:49 Abdomina l pain 64578050 Completed 202005/23/2021 Problem Code: R10.9; Problem Code Type: ICD-10; Not Available [facility] 2 22:47:47 Furuncle 318989782 Active 2020 Problem Code: L02.92; Problem Code Type: ICD-10; Not Available [facility] 2 22:47:46 Stool color abnormal 706470229 Active 2020 Problem Code: R19.5; Problem Code Type: ICD-10; Not Available [facility] 2 22:47:47 Body mass index 30+ - obesity 897726949 Active 2021 Problem Code: Z68.43; Problem Code Type: ICD-10; Not Available [facility] 22:47:48 Obesity 283983431 Active 2021 Not Available [facility] 22:47:46 Vitamin D deficien cy 69855799 Active 2021 Problem Code: E55.9; Problem Code Type: ICD-10; Not Available [facility] 22:47:46 Vitamin deficien cy 14364012 Active 2021 Problem Code: E56.9; Problem Code Type: ICD-10; Not Available [facility] 22:47:46 Disorder of skin and/or subcutan eous tissue 78137263 Active 2021 Problem Code: L98.9; Problem Code Type: ICD-10; Not Available [facility] 22:47:47 Chronic fatigue syndrome 34594445 Active 2021 Problem Code: R53.82; Problem Code Type: ICD-10; Not Available [facility] 22:47:48 Problem Notes None recorded. Procedures Surgical History Date Name Laterality Status Provider Name and Address Organization Details Recorded Time 06/18/20 cholecystectomy completed Not Available [facility] 07/15/2022 22:56:14 06/18/20 tonsillectomy and adenoidectomy completed Not Available [facility] 07/15/2022 22:56:14 06/18/20 tympanostomy completed Not Available [facility] 07/15/2022 22:56:14 Imaging Results None recorded. Procedure Notes None recorded. Medical Equipment None Reported. Allergies Allergen ID Allergen Name Allergen Category Reaction Reaction Severity Criticality Documentation Date Start Date Code Code System Note Provider Name and Address Organization Details Recorded Time 21277 Product containin g penicilli n (product) medicatio n Not available Not available Not available 07/15/2022 17293 8001 SNOMED Aller gyCod e: ''; Aller gyNam e: 'Peni cilli ns'; Aller gyCon ceptT ype: ''; Not Available [facility] 22:58:46 44715 amoxicill in medicatio n Not available Not available Not available 06/26/2023 723 RxNorm Radha Chandni arnett [facility] [email or web address], [facility] 14:40:22 Medications Name Sig Start Date Stop [...] Updated DateTime 4 175.26 cm 64.7 kg/m2 615902. 56 g 110 /min 98 % 98 % 114/81 mm[Hg] Gritness. 4 09:12:11 Date Recorded Body height Body mass index (BMI) Body weight Heart rate Oxygen saturation Oxygen saturation in Arterial blood by Pulse oximetry Systolic And Diastolic Provider Name and Address Organization Details Last Updated DateTime 5 175.26 cm 63.4 kg/m2 699571. 13 g 85 /min 97 % 97 % 106/62 mm[Hg] [employer] 5 14:28:33 Date Recorded Body weight Body mass index (BMI) Body height Heart rate Oxygen saturation Oxygen saturation in Arterial blood by Pulse oximetry Systolic And Diastolic Provider Name and Address Organization Details Last Updated DateTime 3 695507. 24 g 61.1 kg/m2 175.26 cm 65 /min 98 % 98 % 128/84 mm[Hg] [employer] 3 14:43:51 Social History Question Answer Notes LastModified by Organizat ion Details LastModified Time Tobacco Smoking Status Never Smoker SocialHis Kaity ion: 'Tobacco/ Alcohol/S upplement s'; His Adriana nse: 'Never Smoker'; Not Available [facility] 07/15/2022 23:01:49 Is Your Home Air Conditioned? [...] SNOMED-CT Code Diagnosis ICD10 Code Diagnosis Note [id number] Vanita Messina[address] [address] 06/26/2023 14:26:05 06/26/2023 16:03:40 Pain of right wrist 9614556882 69699 M25.531 Edema of wrist 699210995 R60.0 Body mass index 40+ - severely obese 501353869 Z68.44 [id number] Vanita Stone, [address] [address] 11/19/2023 08:56:21 11/19/2023 10:21:34 Polycystic ovary syndrome 533113037 E28.2 Fatigue 44123456 R53.83 Hyperlipidemia 79976950 E78.5 Vitamin D deficiency 347 84141 E55.9 Obesity 267132559 E66.9 Body mass index 40+ - severely obese 318141341 Z68.44 [id number] Vanita Messina [address] [address] 12/30/2024 14:14:07 12/30/2024 14:53:54 Pain in right foot 1437624882 02526 M79.671 Pain of ri ght ankle joint 5011188733 8799246 M25.571 Body mass index 40+ - severely obese 257240170 Z68.44 Health Concerns Section Related Observation LastModified by Organization Detai ls LastModified Time None Recorded Concern Status LastModified by Organization Details LastModified Time None Recorded Advance Directives Directive None Recorded Payers Insurance Date Sequence Insurance Name Policy Number Policy Rubi Covered Member ID Rubi Member ID Guarantor Name 12/30/2024 1 [id number] [id number] 01 Raisa Gonzalez [id number] Raisa Gonzalez 11/19/2023 1 [employer] (POS) Raisa Gonzalez [id number] Raisa Gonzalez 12/30/2024 1 [facility] [id number] Raisa Gonzalez [id number] Raisa Gonzalez 06/26/2023 1 *SELF PAY* Senthil [...] pt states that it is painful to float remover her thumb. on exam, pt has edema, mostly just below thumb, pt can move all fingers but states the thumb is sluggish . i will order steroids and xray. pt to [facility]. Vanita Messina, DORIAN [address] [facility], [place], [address], [email or web address], [employer]. 06/26/2023 15:21:26 11/19/2023 text/html pt here today [...] to a diet. Vanita DORIAN Messina [address] [facility], [place], [address], [employer] 11/19/2023 13:30:33 12/30/2024 text/html pt here [...] continue to RICE. Vanita Messina APRN [address] [facility], [place], [address], [facility] [email or web address] 12/30/2024 14:56:31 OBGyn Episode No OBEpisode recorded.
== END 2025-05-25 23:59 | disposition home or self-care (01) ==
LOC: LAB 13:36
PROVIDERS: PCP Family Medicine; Visit Provider Obstetrics & Gynecology
DX: Z34.90 Encounter for supervision of normal pregnancy, unspecified, unspecified trimester (principal)
CPT/HCPCS: 36415; 84702

== ENCOUNTER 2025-06-21 09:51 | Outpatient (CLI) | payer BC, SELFPAY ==
--- OUTSIDE RECORDS SUMMARY | 2025-06-21 09:54 | XMS_ITS | Clinical Summary ---
[facility] Address [address] [place] [address] Care Team Providers Care Take Out Waitress Name Role Phone Provider, No Known Primary Care Provider Unavail able Allergies Active Allergy Reactions Criticality Noted Date Comments Penicillins Other (See Comments) 10/07/2019 As a child Medications cefdinir (OMNICEF) 300 MG capsuleIndicatio ns:Acute suppurative otitis media of left ear without spontaneous rupture of tympanic membrane, recurrence not specified Take 1 capsule by mouth 2 (Two) Times a Day. 20 capsule 9 Active neomycin-polymyx in-hydrocortison e (CORTISPORIN) 3.5-54712-8 otic solutionIndicati ons:Acute suppurative otitis media of left ear without spontaneous rupture of tympanic membrane, recurrence not specified Administer 3 drops into the left ear 4 (Four) Times a Day. 10 mL 9 Active Active Problems Problem Noted Date Diagnosed Date Acute suppurative otitis med ia of left ear without spontaneous rupture of tympanic membrane 10/07/2019 URI with cough and congestion 10/07/2019 Social History Tobacco Use Types Packs/Day Years Used Date Smoking Tobacco: Never Alcohol Use Standard Drinks/Week Comments No 0 (1 standard drink = 0.6 oz pur e alcohol) AUDIT-C Answer Date Recorded Frequency of Alcohol Consumption Never 10/07/2019 Average Number of Drinks Not on file 019 Frequency of Binge Drinking Not on file 09/10 Abuse Screen Answer Date Recorded Unsafe at Home or Work/School Not on file Feels Threatened by Someone? Not on file 10/2023 Does Anyone Keep You from Co ntacting Others or Doint Things Outside the Home? Not on file 08/20/2023 Physical Sign of Abuse Present Not on file 1 Housing Stability Answer Date Recorded Current Living Arrangements Not on file 08/09 Potentially Unsafe Housing Conditions Not on malou e 08/20/2023 Family and Community Support Answer Prasad e Recorded Help with Day-to-Day Activities Not on file 08/20/2023 Lonely or Isolated Not on file 08/20/2023 Employment Answer Date Recorded Do you want help finding or keeping work or a alexis b? Not on file 08/20/2023 Disabilities Answer Date Recorded Concentrating, Remembering, or Making Decisions Difficulty Not on file 08/20/2023 Doing Errands Independently Difficulty Not on fi le 08/20/2023 Education Answer Date Recorded Help with school or training? Not on file Preferred Language Not on file 08/20/2023 Comments No Sex and Gender Information Value Date Recorded Sex Assigned at Not on file Legal Sex Female 4:40 PM EST Gender Identity Not on file Sexual Orientation Not on file Last Filed Vital Signs Vital Sign Reading Time Taken Comments Blood Pressure 150/94 10/07/2019 4:52 PM EST Pulse 102 10/07/2019 4:52 PM EST Temperature 36.7 C (98.1 F) 10/07/2019 4:52 PM EST Respiratory Rate 16 10/07/2019 4:52 PM EST Oxygen Saturation 97% 10/07/2019 4:52 PM EST Inhaled Oxygen Concentration - - Weight 163 kg (359 lb) 10/07/2019 4:52 PM EST Height 175.3 cm (5' 9 ) 10/07/2019 4:52 PM EST Body Mass Index 53.02 10/07/2019 4:52 PM EST Plan of Treatment Health Maintenance Due Date Last Done Comments ANNUAL PHYSICAL 2000 Annual Gynecologic Pelvic and Breast Exam 2000 HEPATITIS C SCREENING 2000 HPV VACCINES (1 - 3-dose series) 2015 TDAP/TD VACCINES (2 - Td or Tdap) 06/09/2021 06/09/2011 COVID-19 Vaccine (2023- season) 2024 INFLUENZA VACCINE 08/09/2025 11/17/2014 Pneumococcal Vaccine 0-49 Aged Out 2001, 05/13/2001, 02/24/2001, Additional history exists No longer eligible based on patient's age to complete this topic Insurance Care Teams Take Out Waitress Relationship Specialty Start Date End Date Provider, No Known [facility] [place] [address] PCP - General 10/07/19
--- OUTSIDE RECORDS SUMMARY | 2025-06-21 09:54 | XMS_ITS | Clinical Summary ---
Author Organization [facility] Address [address] [place] [address] Care Team Providers Care Teleprinter Installer Name Role Phone Sabina Pereira APRN Primary Care Provider [phone] Allergies Active Allergy Reactions Criticality Noted Date [...] week 03/24/2024 How often do you attend [facility] or gnosticism services? More than 4 times per year 03/24/2024 Do you belong to any clubs o r organizations such as pentecostal groups, unions, fraternal or athletic groups, or [...] Recorded Patient Health Questionnaire-2 Score 0 03/24/2024 [facility] - [...] place to sleep or slept in a senior care (including now)? No 03/24/2024 Utilities Answer Date Recorded In the past 12 months has th e [employer], gas, oil, or water [employer] threatened to shut off services in your [...] 06/09/2021 06/09/2011, 05/07/2004, 09/06/2001, Additional history exists [id number] Vaccine (1 - 2023- season) 2024 UKY-Depression [...] 4:39 PM EDT) Case Report Cytology Case: [id number] Authorizing Provider: Jennifer English APRN, Collected: 01/20/2023 1639 CNM Ordering Location: Obstetrics & Gynecology Received: 01/21/2023 0927 First Screen: Macie Gallagher Specimen: ThinPrep Pap Test, Liquid-Based Cervical/Vaginal, CERVICAL/VAGINAL 01/23/2023 4:12 PM EDT [facility] Interpretation NEGATIVE FOR INTRAEPITHELIAL LESION OR MALIGNANCY 01/23/2023 4:12 PM EDT [facility] at 1612 EDT Specimen Adequacy Satisfactory for evaluation; endocervical/gramajo sformation zone component absent/insufficie nt. Slide imaged by the ThinPrep Imaging system and selected 22 zambrano reviewed then full manual screening. 01/23/2023 4:12 PM EDT [facility] Cervical cytology is a screening [...] results is suggested (please call Microbiology at [phone] for results). 01/23/2023 4:12 PM EDT [facility] Menstrual Status Cyclic 01/24/20 4:12 PM EDT [facility] Contraceptive History Not Applicable 01/23/2023 4:12 PM EDT [facility] Screening Type Routine Screen 2022 4:12 PM EDT [facility] High Risk? No 01/23/2023 4:12 PM EDT [facility] HPV Testing Requested? Request HPV testing if ASCUS or LSIL. 01/23/2023 4:12 PM EDT [facility] Previous Cancer History No 01/23/2023 4:12 PM EDT [facility] Clinical Information Z12.4 - [...] ORDERA BLES Final Result [facility] [address] [place] [address] from Last 3 Months or Most Recently Relevant to Health Maintenance Insurance Care Teams Teleprinter Installer Relationship Specialty Start Date End Date Sabina Pereira APRN [address] [place] [address] [phone] PCP - General Family Medicine 01/30/24
[2025-06-21 10:45] LABS: Hematocrit 36.3 % (37.0-47.0); Hemoglobin 11.5 g/dL (12.2-16.2); Immature Granulocytes % 0.7 %; Mean Corpuscular HGB Conc 31.7 g/dL (31.8-35.4); Mean Corpuscular Hemoglobin 25.4 pg (27.0-31.2); Mean Corpuscular Volume 80.3 fl (81-99); Nucleated Red Blood Cells % 0 %; Platelet Count 346 K/mm3 (142-424); Red Blood Count 4.52 M/mm3 (4.20-5.40); Red Cell Distribution Width-SD 40.2 fL; White Blood Count 11.5 K/mm3 (4.8-10.8)
[2025-06-21 11:31] LABS: Free T4 (Free Thyroxine) 1.13 ng/dl (0.78-2.19)
[2025-06-21 11:47] LABS: Thyroid Stimulating Hormone 2.24 uIU/mL (0.465-4.68)
[2025-06-21 12:23] LABS: Hepatitis C Ab Qual. W/ RFX NEGATIVE (Negative)
[2025-06-21 15:40] LABS: RPR W/RFX Titers Nonreactive (Nonreactive)
[2025-06-22 08:14] LABS: Hepatitis B Surface Antigen Negative (Negative)
[2025-06-22 09:12] LABS: Rubella Antibodies, IgG 9.13 index (Immune >0.99)
== END 2025-06-21 23:59 | disposition home or self-care (01) ==
LOC: LAB 09:52
PROVIDERS: Nurse Practitioner; PCP Family Medicine; Visit Provider Obstetrics & Gynecology
DX: O99.210 Obesity complicating pregnancy, unspecified trimester (principal); O99.280 Endocrine, nutritional and metabolic diseases complicating pregnancy, unspecified trimester; E66.9 Obesity, unspecified; E28.2 Polycystic ovarian syndrome; R53.83 Other fatigue; Z3A.00 Weeks of gestation of pregnancy not specified
CPT/HCPCS: 36415; 84439; 84443; 85025; 86592; 86762; 86803; 86850; 87086; 87340; 87389; 87491; 87591